=== PATIENT | female | born 1965 | race African-American/Black ===

== ENCOUNTER 2016-06-01 09:52 | Inpatient (IN) | payer OTHER ==
[2016-06-01 11:08] VITALS: BMI 27.6
--- NOTE | 2016-06-01 12:09 | HP ---
CIWA Score - CIWA Score Nausea/Vomitin Muscle Tremors: 3 Anxiety: 3 Agitation: 3 Paroxysmal Sweats: 2 Orientation: 0-Oriented Tacttile Disturbances: 2-Mild Itch/Numbness/Burn Auditory Disturbances: 2-Mild Harshness/Frighten Visual Disturbances: 2-Mild Sensitivity Headache: 2-Mild CIWA-Ar Total Score: 22 Admission ROS [facility] - HPI Chief Complaint: I NEEED HELP TO STOP DRINKING ALCOHOL AND USING COCAINE Allergies/Adverse Reactions: Allergies Allergy/AdvReac Type Severity Reaction Status Date / Time No Known Allergies Allergy Verified 06/01/16 11:54 History of Present Illness: THIS 51 YERS OLD FEMALE WITH ALCOHOL AND CCOAINE DEPENDENCE,WITHDRAWAL SYMPTOM, LAST DETOX 12/25/15 TO 12/29/15 [facility] ASTHMA UMBILICAL HERNIA DEPRESSION SYPHILIS TREATED YEAST INFECTION SEVERAL ADMISSIONS IN THE PAST KEEP RELAPSING LONGEST PERIOD OF SOBRIETY 18 MONTHS - Ebola screening Have you traveled outside of the country in the last 21 days: No Have you had contact with anyone from an Ebola affected area: No Have you been sick,other than usual withdrawal symptoms: No Do you have a fever: No - Review of Systems Constitutional: Loss of Appetite, Malaise, Night Sweats, Changes in sleep, Weakness EENT: reports: Nose Congestion Respiratory: reports: No Symptoms reported GI: reports: Diarrhea, Nausea, Vomiting, Abdominal cramping : reports: No Symptoms Reported Musculoskeletal: reports: Back Pain, Joint Pain, Muscle Pain Integumentary: reports: Dryness Neuro: reports: Headache, Tremors Endocrine: reports: No Symptoms Reported Hematology: reports: No Symptoms Reported Psychiatric: reports: Judgement Intact, Mood/Affect Appropiate, Orientated x3, Depressed Patient History - Patient Medical History Hx Anemia: No Hx Asthma: Yes (ON ALBUTEROL INHALER) Hx Chronic Obstructive Pulmonary Disease (COPD): No Hx Cancer: No Hx Cardiac Disorders: No Hx Congestive Heart Failure: No Hx Hypertension: No Hx Hypercholesterolemia: No Hx Pacemaker: No HX Cerebrovascular Accident: No Hx Seizures: No Hx Dementia: No Hx Diabetes: No Hx Gastrointestinal Disorders: No Hx Liver Disease: No Hx Genitourinary Disorders: No Hx Sexually Transmitted Disorders: Yes (syphilis) Hx Renal Disease (ESRD): No Hx Thyroid Disease: No Hx Human Immunodeficiency Virus (HIV): No (NEGATIVE HX,) Hx Hepatitis C: No Hx Depression: Yes Hx Suicide Attempt: Yes (9 YEARS OLD OVERDOSE ASPIRIN) Hx Bipolar Disorder: Yes (seroquel) Hx Schizophrenia: No Other Medical History: NO SUICIDAL,NO HOMICIDAL - Patient Surgical History Past Surgical History: Yes Hx Neurologic Surgery: No Hx Cataract Extraction: No Hx Cardiac Surgery: No Hx Lung Surgery: No Hx Breast Surgery: No Hx Breast Biopsy: No Hx Abdominal Surgery: Yes (UMBILICAL HERNIA REPAIR IN 2009) Hx Appendectomy: No Hx Cholecystectomy: No Hx Genitourinary Surgery: No Hx Section: No Hx Orthopedic Surgery: No Hx Hysterectomy: No Other Surgical History: D&C IN 1979 AND 1983 Anesthesia Reaction: No - PPD History Previous Implant?: Yes Documented Results: Negative w/proof Date: 12/27/15 Results: 0 mm PPD to be Administered?: No - Reproductive History Last Menstrual Period: 11/27/15 Patient : No - Smoking Cessation Smoking history: Current every day smoker Have you smoked in the past 12 months: Yes Aproximately how many cigarettes per day: 5 Cigars Per Day: 0 Hx Chewing Tobacco Use: No Initiated information on smoking cessation: Yes 'Breaking Loose' booklet given: 06/01/16 - Substance & Tx. History Hx Alcohol Use: Yes Hx Substance Use: Yes Substance Use Type: Alcohol, Cocaine Hx Substance Use Treatment: Yes - Substances Abused Alcohol Route: Oral Frequency: Daily Amount used: 3 22 OZ BEERS Age of first use: 8 Date of Last Use: 05/31/16 Crack Route: Smoking Frequency: Daily Amount used: $40-50 Age of first use: 16 Date of Last Use: 05/29/16 Family Disease History - Family Disease History Family Disease History: [place]: Mother (drug use ), Other: Mother Admission Physical Exam [facility] - Vital Signs Vital Signs: Vital Signs - 24 hr 06/01/16 11:02 Temperature 97.1 F L Pulse Rate 76 Respiratory 18 Rate Blood Pressure 151/104 - Physical General Appearance: Yes: Moderate Distress, Tremorous, Irritable, Sweating, Anxious HEENTM: Yes: EOMI, Hearing grossly Normal, Normal ENT Inspection, Pharynx Normal , Nasal Congestion Respiratory: Yes: Lungs Clear, Normal Breath Sounds, No Respiratory Distress Neck: Yes: Within Normal Limits, Supple, Trachea in good position Breast: Yes: Breast Exam Deferred Cardiology: Yes: Within Normal Limits, Regular Rhythm, Regular Rate Abdominal: Yes: Within Normal Limits, Normal Bowel Sounds, Non Tender, Flat, Soft, Surgical Scar Genitourinary: Yes: Yeast Infection Back: Yes: Within Normal Limits, Normal Inspection, Muscle Spasm Musculoskeletal: Yes: Back pain, Joint Stiffness Extremities: Yes: Normal Inspection, Normal Range of Motion, Tremors 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 (4) Nicotine dependence Current Visit: No Status: Chronic Qualifiers: Nicotine product type: cigarettes Substance use status: uncomplicated Qualified Code(s): F17.210 - Nicotine dependence, cigarettes, uncomplicated (5) MDD (major depressive disorder) Current Visit: No Status: Suspected (6) Syncope Current Visit: No Status: Suspected Qualifiers: Syncope type: unspecified Qualified Code(s): R55 - Syncope and collapse (7) Arthritis Current Visit: Yes Status: Acute (8) Cocaine dependence, uncomplicated Current Visit: No Status: Chronic (9) Yeast infection Current Visit: Yes Status: Acute Cleared for Admission S - Detox or Rehab [facility] Level of Care: Medically Managed Detox Regimen/Protocol: Librium S Breath Alcohol Content Breath Alcohol Content: 0 Urine Pregancy Test - Result Urine Test Results: Negative- NO Line Present Urine Drug Screen - Results Drug Screen Negative: No Urine Drug Screen Results: JERRI-Cocaine
[2016-06-01] MEDS ORDERED: hydrOXYzine PAMOATE 25 MG CAPSULE (FP) PO PRN (12:18)
[2016-06-01] MEDS ORDERED: diphenhydrAMINE HCL 50 MG CAPSULE PO PRN (12:18)
[2016-06-01] MEDS ORDERED: MAGNESIUM CITRATE 300 ML BOTTLE PO PRN (12:18)
[2016-06-01] MEDS ORDERED: MAG HYDROX/AL HYDROX/SIMETH 30 ML UNIT-DOSE CUP PO PRN (12:18)
[2016-06-01] MEDS ORDERED: MAGNESIUM HYDROX 2400MG/30ML ORAL SUSPENSION 30 ML CUP PO PRN (12:18)
[2016-06-01] MEDS ORDERED: IBUPROFEN 400 MG TABLET (FP) PO PRN (12:18)
[2016-06-01] MEDS ORDERED: chlordiazePOXIDE HCL 25 MG CAPSULE PO PRN (12:18)
[2016-06-01] MEDS ORDERED: LOPERAMIDE HCL 2 MG CAPSULE PO PRN (12:18)
[2016-06-01] MEDS ORDERED: guaiFENesin/D-METHORPHAN HB 10 ML UNIT-DOSE CUPS PO PRN (12:18)
[2016-06-01] MEDS ORDERED: ACETAMINOPHEN 325 MG TABLET (FP) PO PRN (12:18)
[2016-06-01] MEDS ORDERED: MENTHOL/PHENOL 1 EACH UD MM PRN (12:18)
[2016-06-01] MEDS ORDERED: P-EPHED 60MG/TRIPROLIDI 2.5MG TABLET PO PRN (12:18)
[2016-06-01] MEDS ORDERED: ALBUTEROL SO4 6.7 GM HFA INHALER IH PRN (12:20)
[2016-06-01] MEDS ORDERED: FLUCONAZOLE 50 MG TABLET PO ONE (12:56)
[2016-06-01] MEDS ORDERED: chlordiazePOXIDE HCL 25 MG CAPSULE PO ONE (12:56)
[2016-06-01] MEDS: chlordiazePOXIDE HCL 25 MG CAPSULE PO SCH ×2 (17:32→22:26)
[2016-06-01 17:35] LABS: URINE APPEARANCE SLCLOUDY; URINE BILIRUBIN NEGATIVE (NEGATIVE); URINE BLOOD NEGATIVE (NEGATIVE); URINE COLOR YELLOW; URINE GLUCOSE (UA) NEGATIVE (NEGATIVE); URINE KETONE NEGATIVE (NEGATIVE); URINE LEUK ESTERASE NEGATIVE (NEGATIVE); URINE NITRITE NEGATIVE (NEGATIVE); URINE PROTEIN NEGATIVE (NEGATIVE); URINE UROBILINOGEN NEGATIVE E.U./dl (0.2-1.0)
[2016-06-01] MEDS: NAPROXEN 500 MG TABLET (FP) PO SCH (22:26)
[2016-06-01] MEDS: THIAMINE HCL 100 MG TABLET (FP) PO SCH (22:26)
[2016-06-02] MEDS: chlordiazePOXIDE HCL 25 MG CAPSULE PO SCH ×4 (08:00→22:33)
--- NOTE | 2016-06-02 08:25 | CONSULT ---
[facility] Psychiatric Consult - Data Date of interview: 06/02/16 Admission source: [facility] Identifying data: This is 51 years old fema;e with history of Bipolar disorder intoxicated with: Alcohol, Cannabis, PCP, Methamphetamins, Nicotin Substance Abuse History: Smoking history: Current every day smoker. Have you smoked in the past 12 months: Yes. Aproximately how many cigarettes per day: 5. Cigars Per Day: 0. Hx Chewing Tobacco Use: No. Initiated information on smoking cessation: Yes. 'Breaking Loose' booklet given: 06/01/16. - Substance & Tx. History. Hx Alcohol Use: Yes. Hx Substance Use: Yes. Substance Use Type : Alcohol, Cocaine. Hx Substance Use Treatment: Yes. - Substances Abused. Alcohol. Route: Oral. Frequency: Daily. Amount used: 3 22 OZ BEERS. Age of first use: 8. Date of Last Use: 05/31/16. Crack. Route: Smoking. Frequency: Daily. Amount used: $40-50. Age of first use: 16. Date of Last Use : 05/29/16 Medical History: Arthritis history, Hyp[okalenmia history, Asthma, Syncope history Psychiatric History: Patient repoprts history of Bipolar disorder with most recent psychiatric admission on more then 5 years ago, reports currently stable on Seroquel 300mg po bid Physical/Sexual Abuse/Trauma History: Denies Additional Comment: Seroquel 300mg po bid Mental Status Exam - Mental Status Exam Alert and Oriented to: Person Cognitive Function: Fair Patient Appearance: Unkempt Mood: Sad Affect: Mood Congruent Patient Behavior: Cooperative Speech Pattern: Appropriate Voice Loudness: Mildly Soft/Quiet Thought Process: Goal Oriented Thought Disorder: Being Controlled Suicidal Ideation: Denies Homicidal Ideation: Denies Insight/Judgement: Fair Sleep: Difficulty falling asleep Appetite: Weight gain Muscle strength/Tone: Mild Hypotonicity Gait/Station: Shuffling Additional Comments: Seroquel 300mg po bid Psychiatric Findings - Problem List ([place] 1, 2,3) (1) Substance induced mood disorder Current Visit: No Status: Acute (2) Alcohol dependence with uncomplicated withdrawal Current Visit: No Status: Chronic (3) Bipolar II disorder Current Visit: No Status: Chronic Comment: Historical diagnosis. (4) Cannabis dependence Current Visit: No Status: Chronic (5) Cocaine dependence, uncomplicated Current Visit: No Status: Chronic (6) Major depressive disorder, recurrent episode, severe, with psychotic behavior Current Visit: No Status: Chronic (7) Methamphetamine addiction Current Visit: No Status: Chronic (8) Nicotine dependence Current Visit: No Status: Chronic Qualifiers: Nicotine product type: cigarettes Substance use status: uncomplicated Qualified Code(s): F17.210 - Nicotine dependence, cigarettes, uncomplicated (9) PCP (phencyclidine) abuse Current Visit: No Status: Chronic (10) Bipolar depression Current Visit: Yes Status: Suspected - Initial Treatment Plan Initial Treatment Plan: Seroquel 300mg po bid
[2016-06-02 10:05] LABS: MCH 29.3 pg (25.7-33.7); MCHC 32.2 g/dl (32.0-36.0); MEAN CELL VOLUME 91.1 fl (80-96); MEAN PLT VOLUME 8.3 fl (7.5-11.1); PLATELET COUNT 312 K/MM3 (134-434); RDW 14.8 % (11.6-15.6); WHITE BLOOD COUNT 5.4 K/mm3 (4.0-10.0)
[2016-06-02 10:36] LABS: ALBUMIN 3.3 g/dl (3.4-5.0); ALK PHOS 74 U/L (45-117); ANION GAP 11 (8-16); BILIRUBIN,TOTAL 0.2 mg/dL (0.2-1.0); CALCIUM 8.3 mg/dL (8.5-10.1); CO2 23 mmol/L (21-32); COCKROFT - GAULT 85.9265; CREATININE 0.9 mg/dL (0.55-1.02); GLUCOSE,RANDOM 100 mg/dL (74-106); SGOT/AST 15 U/L (15-37); SGPT/ALT 18 U/L (12-78); TOT PROT 7.5 g/dl (6.4-8.2)
[2016-06-02] MEDS: NAPROXEN 500 MG TABLET (FP) PO SCH ×2 (10:57→22:33)
[2016-06-02] MEDS: PRENATAL VITAMINS W/ FOLIC ACID TABLET (FP) PO SCH (10:57)
[2016-06-02] MEDS: QUEtiapine FUMARATE 300 MG TABLET PO SCH ×2 (10:59→22:33)
--- NOTE | 2016-06-02 12:35 | EKG ---
Test Reason : Blood Pressure : / mmHG Vent. Rate : 079 BPM Atrial Rate : 079 BPM P-R Int : 150 ms QRS Dur : 138 ms QT Int : 426 ms P-R-T Axes : 075 065 053 degrees QTc Int : 488 ms NORMAL SINUS RHYTHM RIGHT BUNDLE BRANCH BLOCK ABNORMAL ECG NO PREVIOUS ECGS AVAILABLE Confirmed by MARIE NICOLE MD ([id number]) on 06/02/2016 12:35:08 PM Referred By: Confirmed By:MARIE NICOLE MD
--- NOTE | 2016-06-02 13:57 | PN ---
S CIWA - CIWA Score Nausea/Vomitin Muscle Tremors: 3 Anxiety: 3 Agitation: 2 Paroxysmal Sweats: 3 Orientation: 0-Oriented Tacttile Disturbances: 2-Mild Itch/Numbness/Burn Auditory Disturbances: 0-None Visual Disturbances: 0-None Headache: 0-None Present CIWA-Ar Total Score: 16 BHS Progress Note (SOAP) Subjective: interrupted sleep, sweats, lbp Objective: 06/02/16 13:55 Vital Signs Temperature 96.0 F L 06/02/16 11:04 Pulse Rate 80 06/02/16 11:04 Respiratory Rate 18 06/02/16 11:04 Blood Pressure 139/96 06/02/16 11:04 O2 Sat by Pulse Oximetry (%) Laboratory Tests 06/01/16 06/02/16 06/02/16 13:00 06:20 06:20 WBC 5.4 RBC 3.91 Hgb 11.5 Hct 35.6 MCV 91.1 MCHC 32.2 RDW 14.8 Plt Count 312 MPV 8.3 Sodium 144 Potassium 3.7 Chloride 110 H Carbon Dioxide 23 D Anion Gap 11 BUN 24 H Creatinine 0.9 Creat Clearance w eGFR > 60 Random Glucose 100 Calcium 8.3 L Total Bilirubin 0.2 AST 15 ALT 18 Alkaline Phosphatase 74 Total Protein 7.5 Albumin 3.3 L Urine Color Yellow Urine Appearance Slcloudy Urine pH 5.0 Ur Specific [place] 1.026 Urine Protein Negative Urine Glucose (UA) Negative Urine Ketones Negative Urine Blood Negative Urine Nitrite Negative Urine Bilirubin Negative Urine Urobilinogen Negative Ur Leukocyte Esterase Negative pt aox3 in nad sitting up in bed Assessment: 06/02/16 13:56 withdrawal sx's Plan: cont. detox increase fluids nsaids
[2016-06-02 15:51] LABS: HIV 1 AGp24 NEGATIVE
[2016-06-02 15:52] LABS: HIV 1 & 2 AB PRELIMINARY POSITIVE
[2016-06-02] MEDS: THIAMINE HCL 100 MG TABLET (FP) PO SCH (22:32)
[2016-06-03] MEDS: chlordiazePOXIDE HCL 25 MG CAPSULE PO SCH ×2 (06:43→13:38)
--- NOTE | 2016-06-03 10:43 | PN ---
Psychiatric Progress Note Vital Signs: Vital Signs Period Temp Pulse Resp BP Sys/Blake Pulse Ox Last 24 Hr 96.0 F-98.4 F 73-101 18-18 117-154/81-101 Date of Session: 06/03/16 Chief Complaint:: Ovesedation HPI: As per nursing stuff patient is sedated after taking cyuuent Seroquel doase , pastien reported taking this dosage prior to admission and insited on continuation. Seroquel 300mg po bid Current Medications: Active Medications Generic Name Dose Route Start Last Admin Trade Name Freq PRN Reason Stop Dose Admin Acetaminophen 650 mg 06/01/16 12:18 Tylenol - PO Q4H PRN FEVER OR PAIN Al Hydroxide/Mg Hydroxide 30 ml 06/01/16 12:18 Mylanta Oral Suspension - PO Q6H PRN DYSPEPSIA Albuterol Sulfate 2 puff 06/01/16 12:20 Ventolin Hfa Inhaler - IH Q4H PRN ASTHMA Chlordiazepoxide HCl 10 mg 06/04/16 17:00 Librium - PO 06/05/16 11:01 [id number] CATIE Chlordiazepoxide HCl 25 mg 06/01/16 12:18 Librium - PO 06/04/16 12:17 Q4H PRN WITHDRAWAL(CONT SUBST) Chlordiazepoxide HCl 25 mg 06/02/16 17:00 06/03/16 06:43 Librium - PO 06/03/16 11:01 Not Given [id number] CATIE Chlordiazepoxide HCl 15 mg 06/03/16 17:00 Librium - PO 06/04/16 11:01 [id number] CATIE Diphenhydramine HCl 50 mg 06/01/16 12:18 Benadryl - PO HSMR1 PRN INSOMNIA Eucalyptus/Menthol/Phenol/Sorbitol 1 each 06/01/16 12:18 Cepastat Lozenge - MM Q4H PRN SORE THROAT Guaifenesin 10 ml 06/01/16 12:18 Robitussin Dm - PO Q6H PRN COUGH Hydroxyzine Pamoate 25 mg 06/01/16 12:18 Vistaril - PO Q4H PRN AGITATION Loperamide HCl 4 mg 06/01/16 12:18 Imodium - PO Q6H PRN DIARRHEA Magnesium Citrate 300 ml 06/01/16 12:18 Citroma - PO Q48H PRN CONSTIPATION Magnesium Hydroxide 30 ml 06/01/16 12:18 Milk Of Magnesia - PO DAILY PRN CONSTIPATION Naproxen 500 mg 06/01/16 22:00 06/02/16 22:33 Naprosyn - PO 500 mg BID CATIE Administration Multivit/Folic Acid/Iron 1 tab 06/02/16 10:00 06/02/16 10:57 Vitamins (Sjr) - PO 1 tab DAILY CATIE Administration Pseudoephedrine/Triprolidine 1 combo 06/01/16 12:18 Actifed - PO TID PRN NASAL CONGESTION Quetiapine Fumarate 100 mg 06/03/16 10:00 Seroquel - PO BID CATIE Thiamine HCl 100 mg 06/01/16 22:00 06/02/16 22:32 Vitamin B1 - PO 100 mg HS CATIE Administration Medication(s) Change(s): Seroquel 100mg po bid Mental Status Exam - Mental Status Exam Alert and Oriented to: Person Cognitive Function: Fair Patient Appearance: Unkempt Mood: Sad Affect: Flat Patient Behavior: Sedated Speech Pattern: Delayed Voice Loudness: Mildly Soft/Quiet, Moderately Soft/Quiet Thought Process: Circumstantial Thought Disorder: Present Hallucinations: Denies Suicidal Ideation: Denies Homicidal Ideation: Denies Insight/Judgement: Poor Sleep: Difficulty falling asleep Appetite: Weight gain Muscle strength/Tone: Mild Hypotonicity Gait/Station: Shuffling Additional Comments: Seroquel 100mg po bid Psychiatric Treatment Plan - Problem List (1) Substance induced mood disorder Current Visit: No (2) Alcohol dependence with uncomplicated withdrawal Current Visit: No (3) Bipolar II disorder Current Visit: No Comment: Historical diagnosis. (4) Cannabis dependence Current Visit: No (5) Cocaine dependence, uncomplicated Current Visit: No (6) Major depressive disorder, recurrent episode, severe, with psychotic behavior Current Visit: No (7) Methamphetamine addiction Current Visit: No (8) Nicotine dependence Current Visit: No Qualifiers: Nicotine product type: cigarettes Substance use status: uncomplicated Qualified Code(s): F17.210 - Nicotine dependence, cigarettes, uncomplicated (9) PCP (phencyclidine) abuse Current Visit: No (10) Bipolar depression Current Visit: Yes Initial treatment plan: Seroquel 100mg po bid
--- NOTE | 2016-06-03 11:31 | PN ---
BHS Progress Note (SOAP) Subjective: meds are too sedating Objective: 06/03/16 11:30 Vital Signs Temperature 96.8 F L 06/03/16 10:22 Pulse Rate 101 H 06/03/16 10:22 Respiratory Rate 18 06/03/16 10:22 Blood Pressure 117/81 06/03/16 10:22 O2 Sat by Pulse Oximetry (%) Laboratory Tests 06/01/16 06/02/16 06/02/16 13:00 06:20 06:20 WBC 5.4 RBC 3.91 Hgb 11.5 Hct 35.6 MCV 91.1 MCHC 32.2 RDW 14.8 Plt Count 312 MPV 8.3 Sodium 144 Potassium 3.7 Chloride 110 H Carbon Dioxide 23 D Anion Gap 11 BUN 24 H Creatinine 0.9 Creat Clearance w eGFR > 60 Random Glucose 100 Calcium 8.3 L Total Bilirubin 0.2 AST 15 ALT 18 Alkaline Phosphatase 74 Total Protein 7.5 Albumin 3.3 L Urine Color Yellow Urine Appearance Slcloudy Urine pH 5.0 Ur Specific [place] 1.026 Urine Protein Negative Urine Glucose (UA) Negative Urine Ketones Negative Urine Blood Negative Urine Nitrite Negative Urine Bilirubin Negative Urine Urobilinogen Negative Ur Leukocyte Esterase Negative RPR Titer HIV 1&2 Antibody Screen HIV P24 Antigen 06/02/16 06/02/16 06:20 07:50 WBC RBC Hgb Hct MCV MCHC RDW Plt Count MPV Sodium Potassium Chloride Carbon Dioxide Anion Gap BUN Creatinine Creat Clearance w eGFR Random Glucose Calcium Total Bilirubin AST ALT Alkaline Phosphatase Total Protein Albumin Urine Color Urine Appearance Urine pH Ur Specific [place] Urine Protein Urine Glucose (UA) Urine Ketones Urine Blood Urine Nitrite Urine Bilirubin Urine Urobilinogen Ur Leukocyte Esterase RPR Titer Nonreactive HIV 1&2 Antibody Screen Preliminary positive HIV P24 Antigen Negative 06/03/16 14:20 pt alert ox3 lying in bed in nad Assessment: 06/03/16 14:18 withdrawal sx's preliminary hiv + pending confirmatory scheduled for tomorrow afternoon by lab andrey pt states last hiv testing 4 m ago was negative 06/03/16 14:21 Plan: cont. detox increase fluids f/up hiv confirmatory results d/c tomorrow after results given
[2016-06-03] MEDS: QUEtiapine FUMARATE 100 MG TABLET (FP) PO SCH ×2 (13:36→22:54)
[2016-06-03] MEDS: PRENATAL VITAMINS W/ FOLIC ACID TABLET (FP) PO SCH (13:36)
[2016-06-03] MEDS: NAPROXEN 500 MG TABLET (FP) PO SCH ×2 (13:36→22:54)
[2016-06-03] MEDS: chlordiazePOXIDE 5 MG CAPSULE PO SCH ×2 (18:52→22:36)
[2016-06-03] MEDS: THIAMINE HCL 100 MG TABLET (FP) PO SCH (22:37)
[2016-06-04] MEDS: chlordiazePOXIDE 5 MG CAPSULE PO SCH ×2 (07:23→10:58)
[2016-06-04] MEDS: QUEtiapine FUMARATE 100 MG TABLET (FP) PO SCH (10:58)
[2016-06-04] MEDS: PRENATAL VITAMINS W/ FOLIC ACID TABLET (FP) PO SCH (10:58)
[2016-06-04] MEDS: NAPROXEN 500 MG TABLET (FP) PO SCH ×2 (10:59→22:59)
--- NOTE | 2016-06-04 11:04 | PN ---
Psychiatric Progress Note Vital Signs: Vital Signs Period Temp Pulse Resp BP Sys/Blake Pulse Ox Last 24 Hr 96.6 F-97.9 F 77-97 18-20 117-145/82-85 Date of Session: 06/04/16 Chief Complaint:: " I am fine." HPI: Day 5 of detox treatment.Patient is addressing issues of dependence ( alcohol,amphetamine,cocaine,cannabis,phencyclidine) co-morbid with Bipolar-II Disorder.Doing fine.Nearing completion of detox protocol.Psychiatric re-consult is sought as a supportive intervention to assist this patient who got informed of being seropositive for HIV virus. ROS: Unremarkable.Patient is visible,active,sociable and ambulatory.Cognition remains intact.No evidence of acute distress. Current Medications: Active Medications Generic Name Dose Route Start Last Admin Trade Name Freq PRN Reason Stop Dose Admin Acetaminophen 650 mg 06/01/16 12:18 Tylenol - PO Q4H PRN FEVER OR PAIN Al Hydroxide/Mg Hydroxide 30 ml 06/01/16 12:18 Mylanta Oral Suspension - PO Q6H PRN DYSPEPSIA Albuterol Sulfate 2 puff 06/01/16 12:20 Ventolin Hfa Inhaler - IH Q4H PRN ASTHMA Chlordiazepoxide HCl 10 mg 06/04/16 17:00 Librium - PO 06/05/16 11:01 [id number] CATIE Chlordiazepoxide HCl 25 mg 06/01/16 12:18 Librium - PO 06/04/16 12:17 Q4H PRN WITHDRAWAL(CONT SUBST) Diphenhydramine HCl 50 mg 06/01/16 12:18 Benadryl - PO HSMR1 PRN INSOMNIA Eucalyptus/Menthol/Phenol/Sorbitol 1 each 06/01/16 12:18 Cepastat Lozenge - MM Q4H PRN SORE THROAT Guaifenesin 10 ml 06/01/16 12:18 Robitussin Dm - PO Q6H PRN COUGH Hydroxyzine Pamoate 25 mg 06/01/16 12:18 Vistaril - PO Q4H PRN AGITATION Loperamide HCl 4 mg 06/01/16 12:18 Imodium - PO Q6H PRN DIARRHEA Magnesium Citrate 300 ml 06/01/16 12:18 Citroma - PO Q48H PRN CONSTIPATION Magnesium Hydroxide 30 ml 06/01/16 12:18 Milk Of Magnesia - PO DAILY PRN CONSTIPATION Naproxen 500 mg 06/01/16 22:00 06/04/16 10:59 Naprosyn - PO Not Given BID CATIE Multivit/Folic Acid/Iron 1 tab 06/02/16 10:00 06/04/16 10:58 Vitamins (Sjr) - PO 1 tab DAILY CATIE Administration Pseudoephedrine/Triprolidine 1 combo 06/01/16 12:18 Actifed - PO TID PRN NASAL CONGESTION Quetiapine Fumarate 100 mg 06/03/16 10:00 06/04/16 10:58 Seroquel - PO Not Given BID CATIE Thiamine HCl 100 mg 06/01/16 22:00 06/03/16 22:37 Vitamin B1 - PO 100 mg HS CATIE Administration Medication(s) Change(s): No indication for medications changes. Current Side Effect: No Lab tests ordered: No Lab tests reviewed: Yes (Noted preliminary result : HIV + ) Provider note:: Previous progress notes are reviewed.Dr Zuñiga's consult note is appreciated.Case is presented by RN and patient's counselor.Met with the patient.Ms Valadez indicates that she is " not surprised " by this result.She also comments that this is " not the first time " the situation has occurred.Patient remains skeptical of the result and she intends to contact her primary care physician for re-testing." I have been involved in risky behaviors, wrong people.I knew that I could get in trouble.However,even if the new test is positive,I will stay in touch with doctors.Nowadays,people with the virus live for a long time." Ms Valadez is well controlled,calm,hopeful and future- oriented.She shows acceptance of this new challenge and a clear determination to manage the situation.Mental status is stable.See report.Patient responds favorably to staff's empathy/support.Hospital course remains uneventful.Patient is at her baseline.Discussed with the Multidisciplinary treatment team. Total face to face time:: 35 Mental Status Exam - Mental Status Exam Alert and Oriented to: Time, Place, Person Cognitive Function: Good Patient Appearance: Well Groomed Mood: Hopeful, Euthymic Affect: Appropriate, Normal Range Patient Behavior: Appropriate, Cooperative Speech Pattern: Clear, Appropriate Voice Loudness: Normal Thought Process: Goal Oriented Thought Disorder: Not Present Hallucinations: Denies Suicidal Ideation: Denies Homicidal Ideation: Denies Insight/Judgement: Fair Sleep: Well Appetite: Good Muscle strength/Tone: Normal Psychiatric Treatment Plan - Problem List (1) Alcohol dependence with uncomplicated withdrawal Current Visit: Yes (2) Cannabis dependence Current Visit: Yes (3) Cocaine dependence, uncomplicated Current Visit: Yes (4) Nicotine dependence Current Visit: Yes Qualifiers: Nicotine product type: cigarettes Substance use status: uncomplicated Qualified Code(s): F17.210 - Nicotine dependence, cigarettes, uncomplicated (5) PCP (phencyclidine) abuse Current Visit: Yes (6) Methamphetamine addiction Current Visit: Yes (7) Substance induced mood disorder Current Visit: Yes (8) Bipolar II disorder Current Visit: Yes Comment: Historical diagnosis. (9) Arthritis Current Visit: Yes (10) Asthma Current Visit: Yes
--- NOTE | 2016-06-04 12:16 | PN ---
[facility] Progress Note (SOAP) Subjective: Sweating, Hot Sensations, Body Aches. Objective: PT. A & O X 2 (DISORIENTED ABOUT DAY /DATE). PT. OBSERVED AMBULATING ON UNIT. 06/04/16 12:07 Vital Signs Temperature 97.9 F 06/04/16 11:31 Pulse Rate 93 H 06/04/16 11:31 Respiratory Rate 18 06/04/16 11:31 Blood Pressure 139/96 06/04/16 11:31 O2 Sat by Pulse Oximetry (%) Laboratory Last Values WBC 5.4 K/mm3 (4.0-10.0) 06/02/16 06:20 RBC 3.91 M/mm3 (3.60-5.2) 06/02/16 06:20 Hgb 11.5 GM/dL (10.7-15.3) 06/02/16 06:20 Hct 35.6 % (32.4-45.2) 06/02/16 06:20 MCV 91.1 fl (80-96) 06/02/16 06:20 MCHC 32.2 g/dl (32.0-36.0) 06/02/16 06:20 RDW 14.8 % (11.6-15.6) 06/02/16 06:20 Plt Count 312 K/MM3 (134-434) 06/02/16 06:20 MPV 8.3 fl (7.5-11.1) 06/02/16 06:20 Sodium 144 mmol/L (136-145) 06/02/16 06:20 Potassium 3.7 mmol/L (3.5-5.1) 06/02/16 06:20 Chloride 110 mmol/L (98-107) H 06/02/16 06:20 Carbon Dioxide 23 mmol/L (21-32) D 06/02/16 06:20 Anion Gap 11 (8-16) 06/02/16 06:20 BUN 24 mg/dL (7-18) H 06/02/16 06:20 Creatinine 0.9 mg/dL (0.55-1.02) 06/02/16 06:20 Creat Clearance w eGFR > 60 (>60) 06/02/16 06:20 Random Glucose 100 mg/dL (74-106) 06/02/16 06:20 Calcium 8.3 mg/dL (8.5-10.1) L 06/02/16 06:20 Total Bilirubin 0.2 mg/dL (0.2-1.0) 06/02/16 06:20 AST 15 U/L (15-37) 06/02/16 06:20 ALT 18 U/L (12-78) 06/02/16 06:20 Alkaline Phosphatase 74 U/L (45-117) 06/02/16 06:20 Total Protein 7.5 g/dl (6.4-8.2) 06/02/16 06:20 Albumin 3.3 g/dl (3.4-5.0) L 06/02/16 06:20 Urine Color Yellow 06/01/16 13:00 Urine Appearance Slcloudy 06/01/16 13:00 Urine pH 5.0 (5.0-8.0) 06/01/16 13:00 Ur Specific [place] 1.026 (1.001-1.035) 06/01/16 13:00 Urine Protein Negative (NEGATIVE) 06/01/16 13:00 Urine Glucose (UA) Negative (NEGATIVE) 06/01/16 13:00 Urine Ketones Negative (NEGATIVE) 06/01/16 13:00 Urine Blood Negative (NEGATIVE) 06/01/16 13:00 Urine Nitrite Negative (NEGATIVE) 06/01/16 13:00 Urine Bilirubin Negative (NEGATIVE) 06/01/16 13:00 Urine Urobilinogen Negative E.U./dl (0.2-1.0) 06/01/16 13:00 Ur Leukocyte Esterase Negative (NEGATIVE) 06/01/16 13:00 RPR Titer Nonreactive (NONREACTIVE) 06/02/16 06:20 HIV-1 Antibody Positive (Negative) H 06/02/16 07:50 HIV-2 Antibody Negative (Negative) 06/02/16 07:50 HIV 1&2 Ag/Ab, 4th Gen (Non Reactive) 06/02/16 07:50 HIV Note (.) 06/02/16 07:50 HIV 1&2 Antibody Screen Preliminary positive 06/02/16 07:50 HIV P24 Antigen Negative 06/02/16 07:50 LABS NOTED. PRELIMINARY POSITIVE HIV RESULT NOTED. CONFIRMATORY RESULT PENDING. Assessment: 06/04/16 12:09 WITHDRAWAL SYMPTOMS. Plan: CONTINUE DETOX. ADVISED PATIENT TO FOLLOW-UP WITH OUTDOOR PURSUITS INSTRUCTOR / REHAB MEDICAL PROVIDER AFTER DISCHARGE FROM DETOX FOR ABNORMAL LAB VALUES. PATIENT MADE AWARE OF PRELIMINARY POSITIVE HIV ANTIBODY RESULT. PATIENT NOTES POSITIVE HIV RESULT IN PAST. MENTAL HEALTH CASE MANAGER ALONG WITH SUBSTANCE ABUSE PREVENTION COORDINATOR Prieto WRIGHT AND Saira BRIAN RN DISCUSSED RESULT WITH PATIENT. PATIENT CALM AND RECEPTIVE UPON HEARING ABOUT RESULT. PATIENT REFERRED FOR FURTHER EVALUATION / TREATMENT AT [facility] (Hannah CARRERA, SHEET METAL HELPER: YOUNG). APPOINTMENT SCHEDULED FOR Tuesday06/08/16 AT 10:30 AM. PATIENT OFFERED OPPORTUNITY TO ASK QUESTIONS. PATIENT REFERRED TO UNIT PSYCHIATRIST DR. GINNA MD FOR FURTHER EVALUATION AND COUNSELING.
--- NOTE | 2016-06-04 17:10 | PN ---
[facility] Progress Note Note: CONFIRMATORY HIV RESULT STILL PENDING WHEN CHECKED LATER ON IN SHIFT. PATIENT'S CORRECT TELEPHONE NUMBER AND MAILING ADDRESS ON FILE AND CONFIRMED BY PATIENT HERSELF SO THAT CONFIRMATORY RESULT, IF NOT AVAILABLE PRIOR TO HER DISCHARGE FROM DETOX, CAN BE SENT TO HER ONCE IT IS AVAILABLE. Prieto LÓPEZ NP
[2016-06-04] MEDS: chlordiazePOXIDE HCL 10 MG CAPSULE PO SCH ×2 (17:48→22:59)
[2016-06-04] MEDS: THIAMINE HCL 100 MG TABLET (FP) PO SCH (22:59)
[2016-06-05] MEDS: QUEtiapine FUMARATE 100 MG TABLET (FP) PO SCH ×2 (00:21→11:22)
[2016-06-05] MEDS: chlordiazePOXIDE HCL 10 MG CAPSULE PO SCH ×2 (06:39→11:22)
[2016-06-05 10:34] VITALS: BP 145/94; PULSE 87; TEMP 98.1
--- NOTE | 2016-06-05 10:34 | PN ---
S Progress Note (SOAP) Subjective: ALERT,NO COMPLAINT Objective: 06/05/16 10:30 Vital Signs Temperature 98 F 06/05/16 06:58 Pulse Rate 75 06/05/16 06:58 Respiratory Rate 18 06/05/16 06:58 Blood Pressure 145/92 06/05/16 06:58 O2 Sat by Pulse Oximetry (%) Assessment: 06/05/16 10:31 DETOX COMPLETED,NO WITHDRAWAL SYMPTOM Plan: DISCHARGE TODAY,FOLLOW UP WITH AFTER CARE PROGRAM ARRANGEMENT AND [facility] ARRANGEMENT BY VINCENT LÓPEZ NP,UNDERSTAND THAT THE CONFIRMATION REPORT IS PENDING FOR HIV
--- NOTE | 2016-06-05 10:36 | DS ---
[facility] Detox Discharge Summary Admission Date: 06/01/16 Discharge Date: 06/05/16 - History Present History: Alcohol Dependence, Cocaine Dependence Additional Comments: PATIENT AWARED PRELIMINARY REPORT HIV IS POSITIVE,PENDING ON CONFIRMATION REPORT , SHE WILL GO TO [facility] ON 06/08/16 ARRANGEMENT PER VINCENT LÓPEZ HELP DESK OPERATOR NOTE PATIENT WILL BE NOTIFIED AFTER CONFIRMATION REPORT RESULT SHE STATED SHE WILL TRY TO CALL DR MCNALLY TIS COMING WEEK Pertinent Past History: ARTHRITIS DEPRESSION - Physical Exam Results Vital Signs: Vital Signs Temperature 98.1 F 06/05/16 10:34 Pulse Rate 87 06/05/16 10:34 Respiratory Rate 16 06/05/16 10:34 Blood Pressure 145/94 06/05/16 10:34 O2 Sat by Pulse Oximetry (%) Pertinent Admission Physical Exam Findings: WITHDRAWAL SYMPTOM - Treatment Hospital Course: Detox Protocol Followed, Detoxed Safely, Responded well, Discharged Condition Good Patient has Accepted a Rehab Referral to: DECLINED - Medication Discharge Medications: Ambulatory Orders Quetiapine Fumarate [Seroquel] 300 mg PO BID 12/25/15 Albuterol Sulfate Inhaler - [Ventolin HFA Inhaler -] 2 inh PO Q4H PRN #1 inhaler 12/29/15 Naproxen [Naprosyn -] 500 mg PO BID #30 tablet 12/29/15 Quetiapine Fumarate [Seroquel -] 300 mg PO BID #60 tab 06/02/16 Albuterol Sulfate Inhaler - [Ventolin HFA Inhaler -] 2 puff IH Q4H PRN #1 inhaler 06/05/16 - Diagnosis (1) Alcohol dependence with uncomplicated withdrawal Status: Chronic (2) Asthma Status: Chronic (3) Bipolar II disorder Status: Chronic (4) Nicotine dependence Status: Chronic Qualifiers: Nicotine product type: cigarettes Substance use status: uncomplicated Qualified Code(s): F17.210 - Nicotine dependence, cigarettes, uncomplicated (5) MDD (major depressive disorder) Status: Suspected (6) Syncope Status: Suspected Qualifiers: Syncope type: unspecified Qualified Code(s): R55 - Syncope and collapse (7) Arthritis Status: Acute (8) Cocaine dependence, uncomplicated Status: Chronic (9) Yeast infection Status: Acute - AMA Did Patient Leave Against Medical Advice: No
[2016-06-05] MEDS: NAPROXEN 500 MG TABLET (FP) PO SCH (11:22)
[2016-06-05] MEDS: PRENATAL VITAMINS W/ FOLIC ACID TABLET (FP) PO SCH (11:22)
--- NOTE | 2016-06-11 18:31 | PN ---
[facility] Progress Note Note: Patient called on telephone and informed about Confirmatory Lab Test Result for HIV Antibody Test drawn on 06/02/2016 (Positive for HIV 1 Ab) while admitted at [facility] for Detox. Patient asked if she needed referral for follow-up care and she noted that she will follow-up for medical care and for further evaluation at [facility] in [place], [place]. Patient offered opportunity to ask questions. When asked if she would like a copy of result mailed to her, patient declined. Patient denies current Suicidal ideation and she denies that she has any intention of harming herself or anyone else. Prieto Sawyer NP
== END 2016-06-05 10:51 | disposition home or self-care (01) | DRG 774 ==
LOC: YASAS 09:52 → Y6N 12:37
PROVIDERS: ADMIT Internal Medicine Addiction Medicine; ATTEND Internal Medicine Addiction Medicine
PROC: HZ2ZZZZ Detoxification Services for Substance Abuse Treatment (ICD-10-PCS; principal; 2016-06-05)
DX: F10.230 Alcohol dependence with withdrawal, uncomplicated (principal); F14.20 Cocaine dependence, uncomplicated; F15.20 Other stimulant dependence, uncomplicated; F12.20 Cannabis dependence, uncomplicated; F17.210 Nicotine dependence, cigarettes, uncomplicated; F33.3 Major depressive disorder, recurrent, severe with psychotic symptoms; F31.81 Bipolar II disorder; F19.24 Other psychoactive substance dependence with psychoactive substance-induced mood disorder; J45.909 Unspecified asthma, uncomplicated; M12.9 Arthropathy, unspecified; B37.3 Candidiasis of vulva and vagina
CPT/HCPCS: 36415; 80053; 81003; 85027; 86593; 87389; 93005; 93010

== ENCOUNTER 2016-09-04 10:09 | Inpatient (IN) | payer OTHER ==
[2016-09-04 11:42] VITALS: BMI 27.1
--- NOTE | 2016-09-04 12:01 | HP ---
CIWA Score - CIWA Score Nausea/Vomitin-Mild Nausea/No Vomiting Muscle Tremors: 4-Moderate,w/Arms Extend Anxiety: 4-Mod. Anxious/Guarded Agitation: 1-Slight > Activity Paroxysmal Sweats: No Perspiration Orientation: 0-Oriented Tacttile Disturbances: 0-None Auditory Disturbances: 1-Very Mild Visual Disturbances: 1-Very Mild Sensitivity Headache: 2-Mild CIWA-Ar Total Score: 14 Admission ROS BHS - HPI Chief Complaint: I want to be detoxed - I really want to stop drinking Allergies/Adverse Reactions: Allergies Allergy/AdvReac Type Severity Reaction Status Date / Time No Known Allergies Allergy Verified 09/04/16 12:05 History of Present Illness: 51 yo woman here for detox from alcohol, one of several detox admissions. Recently diagnosed with HIV (may 2016) - went to [facility] and started on meds and has been adherent. No seizures. Urine test weakly positive but patient states always uses condoms and perimenopausal (last period january 2016 ) - will order serum test to verify status. Exam Limitations: Clinical Condition - Ebola screening Have you traveled outside of the country in the last 21 days: No Have you had contact with anyone from an Ebola affected area: No Have you been sick,other than usual withdrawal symptoms: No Do you have a fever: No - Review of Systems Constitutional: Loss of Appetite, Night Sweats, Changes in sleep EENT: reports: Blurred Vision Respiratory: reports: No Symptoms reported Cardiac: reports: No Symptoms Reported GI: reports: Poor Appetite, Indigestion : reports: Frequency Musculoskeletal: reports: No Symptoms Reported Integumentary: reports: Dryness Neuro: reports: Headache Endocrine: reports: No Symptoms Reported Hematology: reports: No Symptoms Reported Psychiatric: reports: Judgement Intact, Mood/Affect Appropiate, Orientated x3, Anxious Other Systems: Reviewed and Negative Patient History - Patient Medical History Hx Anemia: No Hx Asthma: Yes (ON ALBUTEROL INHALER) Hx Chronic Obstructive Pulmonary Disease (COPD): No Hx Cancer: No Hx Cardiac Disorders: No Hx Congestive Heart Failure: No Hx Hypertension: No Hx Hypercholesterolemia: No Hx Pacemaker: No HX Cerebrovascular Accident: No Hx Seizures: No Hx Dementia: No Hx Diabetes: No Hx Gastrointestinal Disorders: No Hx Liver Disease: No Hx Genitourinary Disorders: No Hx Sexually Transmitted Disorders: Yes (syphilis) Hx Renal Disease (ESRD): No Hx Thyroid Disease: No Hx Human Immunodeficiency Virus (HIV): No (NEGATIVE HX,) Hx Hepatitis C: No Hx Depression: Yes (no regular psych) Hx Suicide Attempt: Yes (9 YEARS OLD OVERDOSE ASPIRIN) Hx Bipolar Disorder: Yes (seroquel) Hx Schizophrenia: No - Patient Surgical History Past Surgical History: Yes Hx Neurologic Surgery: No Hx Cataract Extraction: No Hx Cardiac Surgery: No Hx Lung Surgery: No Hx Breast Surgery: No Hx Breast Biopsy: No Hx Abdominal Surgery: Yes (UMBILICAL HERNIA REPAIR IN 2009) Hx Appendectomy: No Hx Cholecystectomy: No Hx Genitourinary Surgery: No Hx Section: No Hx Orthopedic Surgery: No Hx Hysterectomy: No Other Surgical History: D&C IN 1979 AND 1983 Anesthesia Reaction: No - PPD History Previous Implant?: Yes Documented Results: Negative w/proof Date: 12/27/15 Results: 0 mm PPD to be Administered?: No - Reproductive History Patient is a Female of Child Bearing Age (11 -55 yrs old): Yes Last Menstrual Period: 01/22/16 Patient : No - Smoking Cessation Smoking history: Current every day smoker Have you smoked in the past 12 months: Yes Aproximately how many cigarettes per day: 10 Cigars Per Day: 0 Hx Chewing Tobacco Use: No Initiated information on smoking cessation: Yes 'Breaking Loose' booklet given: 09/04/16 (give on floor) - Substance & Tx. History Hx Alcohol Use: Yes Hx Substance Use: Yes Substance Use Type: Alcohol, Cocaine Hx Substance Use Treatment: Yes (detox, rehab) - Substances Abused Alcohol Route: Oral Frequency: 3-6 times per week Amount used: one pint liquor; 3 beers 24oz Age of first use: 10 Date of Last Use: 09/02/16 Cocaine Route: Inhalation Frequency: 3-6 times per week Amount used: $60 Age of first use: 16 Date of Last Use: 09/02/16 Family Disease History - Family Disease History Family Disease History: Heart Disease: Father (, [place]), [place]: Mother ( ), Other: Father, Mother, Brother (no contact), Sister (healthy), Son ( healthy), Daughter (no contact) Admission Physical Exam BHS - Vital Signs Vital Signs: Vital Signs - 24 hr 09/04/16 11:40 Temperature 96.5 F L Pulse Rate 83 Respiratory 20 Rate Blood Pressure 146/98 - Physical General Appearance: Yes: Nourished, Appropriately Dressed, Mild Distress, Tremorous, Anxious HEENTM: Yes: Hearing grossly Normal, Normal ENT Inspection, Normocephalic, Normal Voice Respiratory: Yes: Normal Breath Sounds, No Respiratory Distress Neck: Yes: No masses,lesions,Nodules, Supple Breast: Yes: Breast Exam Deferred Cardiology: Yes: Regular Rhythm, Regular Rate Abdominal: Yes: Soft Genitourinary: Yes: Frequency Back: Yes: Normal Inspection Musculoskeletal: Yes: full range of Motion, Gait Steady Extremities: Yes: Normal Inspection, Normal Range of Motion Neurological: Yes: Fully Oriented, Normal Mood/Affect, Normal Response Integumentary: Yes: Normal Color, Warm Lymphatic: Yes: Within Normal Limits - Diagnostic (1) Alcohol dependence with uncomplicated withdrawal Current Visit: Yes Status: Chronic (2) Cocaine dependence, uncomplicated Current Visit: Yes Status: Chronic (3) HIV (human immunodeficiency virus infection) Current Visit: Yes Status: Chronic (4) Nicotine dependence Current Visit: Yes Status: Chronic Qualifiers: Nicotine product type: cigarettes Substance use status: uncomplicated Qualified Code(s): F17.210 - Nicotine dependence, cigarettes, uncomplicated Cleared for Admission [facility] - Detox or Rehab [facility] Level of Care: Medically Managed Detox Regimen/Protocol: Librium [facility] Breath Alcohol Content Breath Alcohol Content: 0 Urine Pregancy Test - Result Urine Test Results: Negative- NO Line Present Urine Drug Screen - Results Drug Screen Negative: No Urine Drug Screen Results: JERRI-Cocaine
[2016-09-04] MEDS ORDERED: MAGNESIUM CITRATE 300 ML BOTTLE PO PRN (12:11)
[2016-09-04] MEDS ORDERED: guaiFENesin/D-METHORPHAN HB 10 ML UNIT-DOSE CUPS PO PRN (12:11)
[2016-09-04] MEDS ORDERED: MENTHOL/PHENOL 1 EACH UD MM PRN (12:11)
[2016-09-04] MEDS ORDERED: P-EPHED 60MG/TRIPROLIDI 2.5MG TABLET PO PRN (12:11)
[2016-09-04] MEDS ORDERED: MAG HYDROX/AL HYDROX/SIMETH 30 ML UNIT-DOSE CUP PO PRN (12:11)
[2016-09-04] MEDS ORDERED: chlordiazePOXIDE HCL 25 MG CAPSULE PO PRN (12:11)
[2016-09-04] MEDS ORDERED: hydrOXYzine PAMOATE 50 MG CAPSULE (FP) PO PRN (12:11)
[2016-09-04] MEDS ORDERED: LOPERAMIDE HCL 2 MG CAPSULE PO PRN (12:11)
[2016-09-04] MEDS ORDERED: MAGNESIUM HYDROX 2400MG/30ML ORAL SUSPENSION 30 ML CUP PO PRN (12:11)
[2016-09-04] MEDS ORDERED: ACETAMINOPHEN 325 MG TABLET (FP) PO PRN (12:11)
[2016-09-04] MEDS ORDERED: ALBUTEROL SO4 6.7 GM HFA INHALER IH PRN (12:16)
[2016-09-04] MEDS ORDERED: chlordiazePOXIDE HCL 25 MG CAPSULE PO ONE (12:45)
--- NOTE | 2016-09-04 15:13 | CONSULT ---
[facility] Psychiatric Consult - Data Date of interview: 09/04/16 Admission source: [facility] Identifying data: This is one of the multiple admissions to [facility] for this 51 y/o AA female seeking detox treatment on for alcohol and cocaine dependence.Patient is single,a mother of two,domiciled,unemployed and supported on SSI benefits. Substance Abuse History: Patient admits to a long history of alcohol abuse ( onset at age 10).Consumes one pint of vodka/3 beers on a daily basis.Last use was on 09/03/16.Has been abusing cocaine via snorting since age 16 and spends a total of 150 dollars/week as per self-report.Last use was on 09/02/16.Known to [facility] (detox/rehab). Medical History: Significant for bronchial asthma,past treatment for syphilis and umbilical herniorraphy. Psychiatric History: History of an early onset of psychiatric illness (age [age]).Circumstance : suicide attempt via overdose with aspirin that led to psychiatric admission to [facility].Diagnosed with Bipolar Disorder during incarceration at [facility] and treated with seroquel.Still prescribed seroquel at various doses (during detox/rehab stays) but the patient continues to endorse non-adherence to OPD care.Lost to follow up since [facility] [place] (December 2015). Physical/Sexual Abuse/Trauma History: Patient denies. Additional Comment: Urine Drug Screen Results: positive for cocaine. Mental Status Exam - Mental Status Exam Alert and Oriented to: Time, Place, Person Cognitive Function: Good Patient Appearance: Disheveled Mood: Anxious, Apprehensive Affect: Appropriate, Mood Congruent Patient Behavior: Fatigued, Appropriate, Cooperative Speech Pattern: Clear Voice Loudness: Normal Thought Process: Goal Oriented Thought Disorder: Not Present Hallucinations: Denies Suicidal Ideation: Denies Homicidal Ideation: Denies Insight/Judgement: Poor Sleep: Poorly, Difficulty falling asleep Appetite: Good Muscle strength/Tone: Normal Gait/Station: Normal Psychiatric Findings - Problem List ([place] 1, 2,3) (1) Alcohol dependence with uncomplicated withdrawal Current Visit: Yes Status: Acute (2) Cocaine dependence, uncomplicated Current Visit: Yes Status: Acute (3) Nicotine dependence Current Visit: Yes Status: Acute Qualifiers: Nicotine product type: cigarettes Substance use status: uncomplicated Qualified Code(s): F17.210 - Nicotine dependence, cigarettes, uncomplicated (4) Substance induced mood disorder Current Visit: Yes Status: Acute (5) Bipolar II disorder Current Visit: Yes Status: Chronic Comment: Historical diagnosis.Non-adherent to medications.Lost to follow up. (6) HIV (human immunodeficiency virus infection) Current Visit: Yes Status: Chronic (7) Arthritis Current Visit: Yes Status: Acute (8) Asthma Current Visit: Yes Status: Chronic - Initial Treatment Plan Initial Treatment Plan: Previous records are reviewed.Detoxification is under way.Recent pharmacy claims are revisited : no immediate claims for seroquel.[facility] report is read and appreciated.Psychoeducation provided and social issues discussed (patient's request) with counselor on duty.Noted past history of heavy sedation on seroquel (Dr Zuñiga's note of 06/03/2016).Caution to be observed (especially in this context of non-adherence and questionable self- reporting).Will resume seroquel at the dose of 100 mg po hs and titrate as indicated by response and tolerability.Watch for drug-drug interaction with HIV medications (potentiation of sedation).Side effects/benefits of seroquel are discussed with the patient.She agrees with the current careplan.Observation.
[2016-09-04] MEDS: chlordiazePOXIDE HCL 25 MG CAPSULE PO SCH ×2 (17:29→22:20)
[2016-09-04 18:17] LABS: URINE APPEARANCE CLEAR; URINE BILIRUBIN NEGATIVE (NEGATIVE); URINE BLOOD NEGATIVE (NEGATIVE); URINE COLOR YELLOW; URINE GLUCOSE (UA) NEGATIVE (NEGATIVE); URINE KETONE NEGATIVE (NEGATIVE); URINE NITRITE NEGATIVE (NEGATIVE); URINE PROTEIN NEGATIVE (NEGATIVE); URINE UROBILINOGEN NEGATIVE mg/dL (0.2-1.0)
[2016-09-04 18:19] LABS: URINE LEUK ESTERASE 1+ (NEGATIVE)
[2016-09-04 18:21] LABS: URINE MUCUS FEW; URINE RBC 2 /hpf (0-3); URINE WBC 4 /hpf (3-5)
[2016-09-04] MEDS ORDERED: diphenhydrAMINE HCL 50 MG CAPSULE PO PRN (22:00)
[2016-09-04] MEDS ORDERED: NAPROXEN 375 MG TABLET (FP) PO SCH (22:00)
[2016-09-04] MEDS: PATIENT'S OWN MEDICATION (NON-FORMULARY) (Dolutegravir Sodium 0 MG) PO SCH (22:17)
[2016-09-04] MEDS: THIAMINE HCL 100 MG TABLET (FP) PO SCH (22:17)
[2016-09-04] MEDS: EMTRICITABINE 200MG/TENOFOVIR 300MG PO SCH (22:18)
[2016-09-04] MEDS: NAPROXEN 500 MG TABLET (FP) PO PRN (22:18)
[2016-09-04] MEDS: QUEtiapine FUMARATE 100 MG TABLET (FP) PO SCH (22:18)
[2016-09-05] MEDS: chlordiazePOXIDE HCL 25 MG CAPSULE PO SCH ×4 (06:26→22:16)
--- NOTE | 2016-09-05 08:28 | PN ---
S CIWA - CIWA Score Nausea/Vomitin Muscle Tremors: 3 Anxiety: 3 Agitation: 3 Paroxysmal Sweats: 1-Minimal Palms Moist Orientation: 0-Oriented Tacttile Disturbances: 1-Very Mild Itch/Numbness Auditory Disturbances: 1-Very Mild Visual Disturbances: 1-Very Mild Sensitivity Headache: 2-Mild CIWA-Ar Total Score: 18 [facility] Progress Note (SOAP) Subjective: alert,irritable,anxious,interrupted seep,tremor Objective: 09/05/16 08:26 Vital Signs Temperature 97.3 F L 09/05/16 06:00 Pulse Rate 72 09/05/16 06:00 Respiratory Rate 18 09/05/16 06:00 Blood Pressure 129/86 09/05/16 06:00 O2 Sat by Pulse Oximetry (%) ekg nsr,rbbb no chest pain,no sob,no dizziness Laboratory Last Values Urine Color Yellow 09/04/16 15:54 Urine Appearance Clear 09/04/16 15:54 Urine pH 5.0 (5.0-8.0) 09/04/16 15:54 Ur Specific [place] >= 1.030 (1.005-1.025) H 09/04/16 15:54 Urine Protein Negative (NEGATIVE) 09/04/16 15:54 Urine Glucose (UA) Negative (NEGATIVE) 09/04/16 15:54 Urine Ketones Negative (NEGATIVE) 09/04/16 15:54 Urine Blood Negative (NEGATIVE) 09/04/16 15:54 Urine Nitrite Negative (NEGATIVE) 09/04/16 15:54 Urine Bilirubin Negative (NEGATIVE) 09/04/16 15:54 Urine Urobilinogen Negative mg/dL (0.2-1.0) 09/04/16 15:54 Ur Leukocyte Esterase 1+ (NEGATIVE) H 09/04/16 15:54 Urine RBC 2 /hpf (0-3) 09/04/16 15:54 Urine WBC 4 /hpf (3-5) 09/04/16 15:54 Ur Epithelial Cells Few /hpf (FEW) 09/04/16 15:54 Urine Mucus Few 09/04/16 15:54 labs pending Assessment: 09/05/16 08:27 withdrawal symptom Plan: continue detox
[2016-09-05] MEDS ORDERED: ALBUTEROL SO4 6.7 GM HFA INHALER IH PRN (08:29)
[2016-09-05 10:07] LABS: MCH 30.8 pg (25.7-33.7); MCHC 33.1 g/dl (32.0-36.0); MEAN PLT VOLUME 7.9 fl (7.5-11.1); PLATELET COUNT 293 K/MM3 (134-434); RDW 16.2 % (11.6-15.6); WHITE BLOOD COUNT 4.9 K/mm3 (4.0-10.0)
[2016-09-05 10:14] LABS: ANION GAP 6 (8-16); CALCIUM 8.2 mg/dL (8.5-10.1); CO2 29 mmol/L (21-32); GLUCOSE,RANDOM 74 mg/dL (74-106); SGOT/AST 18 U/L (15-37); SGPT/ALT 20 U/L (12-78)
[2016-09-05 10:16] LABS: ALK PHOS 92 U/L (45-117); BILIRUBIN,TOTAL 0.1 mg/dL (0.2-1.0); CREATININE 0.8 mg/dL (0.55-1.02); TOT PROT 6.5 g/dl (6.4-8.2)
[2016-09-05] MEDS: PRENATAL VITAMINS W/ FOLIC ACID TABLET (FP) PO SCH (10:23)
--- NOTE | 2016-09-05 13:29 | EKG ---
Test Reason : Blood Pressure : / mmHG Vent. Rate : 062 BPM Atrial Rate : 062 BPM P-R Int : 158 ms QRS Dur : 144 ms QT Int : 484 ms P-R-T Axes : 071 071 056 degrees QTc Int : 491 ms NORMAL SINUS RHYTHM RIGHT BUNDLE BRANCH BLOCK ABNORMAL ECG WHEN COMPARED WITH ECG OF 01-JUN-2016 12:27, T WAVE INVERSION LESS EVIDENT IN ANTERIOR LEADS Confirmed by COREY GARBER, MARIE ([id number]) on 09/05/2016 1:29:01 PM Referred By: ANNA Confirmed By:MARIE NICOLE MD
[2016-09-05] MEDS ORDERED: POTASSIUM CHLORIDE TABS 20 MEQ TABLET.ER (FP) PO ONE (17:18)
--- NOTE | 2016-09-05 17:20 | PN ---
[facility] Progress Note Note: k is 3.4,k dur 20 meq po now then daily
[2016-09-05] MEDS: QUEtiapine FUMARATE 100 MG TABLET (FP) PO SCH (22:15)
[2016-09-05] MEDS: THIAMINE HCL 100 MG TABLET (FP) PO SCH (22:16)
[2016-09-05] MEDS: PATIENT'S OWN MEDICATION (NON-FORMULARY) (Dolutegravir Sodium 0 MG) PO SCH (22:16)
[2016-09-05] MEDS: EMTRICITABINE 200MG/TENOFOVIR 300MG PO SCH (22:16)
[2016-09-06] MEDS: chlordiazePOXIDE HCL 25 MG CAPSULE PO SCH ×2 (06:42→10:55)
--- NOTE | 2016-09-06 09:18 | PN ---
[facility] CIWA - CIWA Score Nausea/Vomitin-No Nausea/No Vomiting Muscle Tremors: 3 Anxiety: 3 Agitation: 3 Paroxysmal Sweats: 3 Orientation: 0-Oriented Tacttile Disturbances: 0-None Auditory Disturbances: 0-None Visual Disturbances: 0-None Headache: 0-None Present CIWA-Ar Total Score: 12 [facility] Progress Note (SOAP) Subjective: sleepy groggy sweats interrupted sleep agitation Objective: 09/06/16 09:17 Vital Signs Temperature 97.9 F 09/06/16 09:07 Pulse Rate 93 H 09/06/16 09:07 Respiratory Rate 18 09/06/16 09:07 Blood Pressure 138/97 09/06/16 09:07 O2 Sat by Pulse Oximetry (%) Laboratory Tests 09/04/16 09/05/16 09/05/16 15:54 07:15 07:15 WBC 4.9 RBC 3.53 L Hgb 10.9 Hct 32.9 MCV 93.0 MCH 30.8 MCHC 33.1 RDW 16.2 H Plt Count 293 MPV 7.9 Sodium 144 Potassium 3.4 L Chloride 109 H Carbon Dioxide 29 D Anion Gap 6 L BUN 15 D Creatinine 0.8 Creat Clearance w eGFR > 60 Random Glucose 74 D Calcium 8.2 L Total Bilirubin 0.1 L D AST 18 ALT 20 Alkaline Phosphatase 92 D Total Protein 6.5 Albumin 3.0 L Serum , Qual Urine Color Yellow Urine Appearance Clear Urine pH 5.0 Ur Specific [place] >= 1.030 H Urine Protein Negative Urine Glucose (UA) Negative Urine Ketones Negative Urine Blood Negative Urine Nitrite Negative Urine Bilirubin Negative Urine Urobilinogen Negative Ur Leukocyte Esterase 1+ H Urine RBC 2 Urine WBC 4 Ur Epithelial Cells Few Urine Mucus Few RPR Titer 09/05/16 09/05/16 07:15 07:15 WBC RBC Hgb Hct MCV MCH MCHC RDW Plt Count MPV Sodium Potassium Chloride Carbon Dioxide Anion Gap BUN Creatinine Creat Clearance w eGFR Random Glucose Calcium Total Bilirubin AST ALT Alkaline Phosphatase Total Protein Albumin Serum , Qual Negative Urine Color Urine Appearance Urine pH Ur Specific [place] Urine Protein Urine Glucose (UA) Urine Ketones Urine Blood Urine Nitrite Urine Bilirubin Urine Urobilinogen Ur Leukocyte Esterase Urine RBC Urine WBC Ur Epithelial Cells Urine Mucus RPR Titer Nonreactive awake/alert ambulating no acute distress Assessment: 09/06/16 09:18 withdrawal sx Plan: continue detox increase fluids
[2016-09-06] MEDS: PRENATAL VITAMINS W/ FOLIC ACID TABLET (FP) PO SCH (10:55)
[2016-09-06] MEDS: POTASSIUM CHLORIDE TABS 20 MEQ TABLET.ER (FP) PO SCH (10:55)
[2016-09-06] MEDS: chlordiazePOXIDE 5 MG CAPSULE PO SCH ×2 (17:49→22:27)
[2016-09-06] MEDS: THIAMINE HCL 100 MG TABLET (FP) PO SCH (22:27)
[2016-09-06] MEDS: QUEtiapine FUMARATE 100 MG TABLET (FP) PO SCH (22:28)
[2016-09-06] MEDS: PATIENT'S OWN MEDICATION (NON-FORMULARY) (Dolutegravir Sodium 0 MG) PO SCH (22:29)
[2016-09-06] MEDS: EMTRICITABINE 200MG/TENOFOVIR 300MG PO SCH (22:29)
[2016-09-07] MEDS: chlordiazePOXIDE 5 MG CAPSULE PO SCH ×2 (07:37→10:46)
--- NOTE | 2016-09-07 10:34 | PN ---
[facility] Progress Note (SOAP) Subjective: tired irritable Objective: 09/07/16 10:33 Vital Signs Temperature 98 F 09/07/16 06:32 Pulse Rate 77 09/07/16 06:32 Respiratory Rate 18 09/07/16 06:32 Blood Pressure 136/83 09/07/16 06:32 O2 Sat by Pulse Oximetry (%) awake/alert ambulating no acute distress Assessment: 09/07/16 10:34 withdrawal sx Plan: continue detox increase fluids d/c in am
[2016-09-07] MEDS: POTASSIUM CHLORIDE TABS 20 MEQ TABLET.ER (FP) PO SCH (10:46)
[2016-09-07] MEDS: PRENATAL VITAMINS W/ FOLIC ACID TABLET (FP) PO SCH (10:46)
[2016-09-07] MEDS: NAPROXEN 500 MG TABLET (FP) PO PRN (10:46)
[2016-09-07] MEDS: chlordiazePOXIDE HCL 10 MG CAPSULE PO SCH ×2 (19:26→22:35)
[2016-09-07] MEDS: QUEtiapine FUMARATE 100 MG TABLET (FP) PO SCH (22:35)
[2016-09-07] MEDS: EMTRICITABINE 200MG/TENOFOVIR 300MG PO SCH (22:36)
[2016-09-07] MEDS: PATIENT'S OWN MEDICATION (NON-FORMULARY) (Dolutegravir Sodium 0 MG) PO SCH (22:36)
[2016-09-07] MEDS: THIAMINE HCL 100 MG TABLET (FP) PO SCH (22:36)
[2016-09-08] MEDS: chlordiazePOXIDE HCL 10 MG CAPSULE PO SCH ×2 (06:48→10:10)
[2016-09-08 06:53] VITALS: BP 116/76; PULSE 76; TEMP 98
--- NOTE | 2016-09-08 08:25 | DS ---
[facility] Detox Discharge Summary Admission Date: 09/04/16 Discharge Date: 09/08/16 - History Present History: Alcohol Dependence, Cocaine Dependence - Physical Exam Results Vital Signs: Vital Signs Temperature 98 F 09/08/16 06:52 Pulse Rate 76 09/08/16 06:52 Respiratory Rate 18 09/08/16 06:52 Blood Pressure 116/76 09/08/16 06:52 O2 Sat by Pulse Oximetry (%) - Treatment Hospital Course: Detox Protocol Followed, Detoxed Safely, Responded well, Discharged Condition Good - Medication Discharge Medications: Ambulatory Orders Quetiapine Fumarate [Seroquel] 300 mg PO BID 12/25/15 Albuterol Sulfate Inhaler - [Ventolin HFA Inhaler -] 2 inh PO Q4H PRN #1 inhaler 12/29/15 Naproxen [Naprosyn -] 500 mg PO BID #30 tablet 12/29/15 Dolutegravir Sodium [Tivicay] 50 mg PO HS 09/04/16 Emtricitabine/Tenofovir (Tdf) [Truvada 200 mg-300 mg Tablet] 1 each PO HS - Diagnosis (1) Alcohol dependence with uncomplicated withdrawal Current Visit: Yes Status: Chronic (2) Arthritis Current Visit: Yes Status: Chronic (3) Cocaine dependence, uncomplicated Current Visit: Yes Status: Chronic (4) Nicotine dependence Current Visit: Yes Status: Chronic Qualifiers: Nicotine product type: cigarettes Substance use status: uncomplicated Qualified Code(s): F17.210 - Nicotine dependence, cigarettes, uncomplicated (5) Asthma Current Visit: Yes Status: Chronic (6) Bipolar II disorder Current Visit: Yes Status: Chronic (7) HIV (human immunodeficiency virus infection) Current Visit: Yes Status: Chronic - AMA Did Patient Leave Against Medical Advice: No
[2016-09-08] MEDS: POTASSIUM CHLORIDE TABS 20 MEQ TABLET.ER (FP) PO SCH (10:08)
[2016-09-08] MEDS: PRENATAL VITAMINS W/ FOLIC ACID TABLET (FP) PO SCH (10:08)
== END 2016-09-08 10:25 | disposition home or self-care (01) | DRG 774 ==
LOC: YASAS 10:09 → Y3N 12:13 → Y6N 13:25
PROVIDERS: ADMIT Internal Medicine; ATTEND Internal Medicine
PROC: HZ2ZZZZ Detoxification Services for Substance Abuse Treatment (ICD-10-PCS; principal; 2016-09-04)
DX: F10.230 Alcohol dependence with withdrawal, uncomplicated (principal); F14.20 Cocaine dependence, uncomplicated; F17.210 Nicotine dependence, cigarettes, uncomplicated; F31.81 Bipolar II disorder; F19.24 Other psychoactive substance dependence with psychoactive substance-induced mood disorder; J45.909 Unspecified asthma, uncomplicated; Z21 Asymptomatic human immunodeficiency virus [HIV] infection status; M19.90 Unspecified osteoarthritis, unspecified site; Z87.42 Personal history of other diseases of the female genital tract; Z91.5 Personal history of self-harm
CPT/HCPCS: 36415; 80053; 81003; 81015; 84703; 85027; 86593; 93005; 93010

== ENCOUNTER 2017-03-18 11:31 | Inpatient (IN) | payer OTHER ==
[2017-03-18 12:33] VITALS: BMI 26.6
--- NOTE | 2017-03-18 17:46 | HP ---
CIWA Score - CIWA Score Nausea/Vomitin Muscle Tremors: 1-None Visible, but [place] Anxiety: 3 Agitation: 1-Slight > Activity Paroxysmal Sweats: 1-Minimal Palms Moist Orientation: 1-Uncertain about Date Tacttile Disturbances: 2-Mild Itch/Numbness/Burn Auditory Disturbances: 0-None Visual Disturbances: 0-None Headache: 2-Mild CIWA-Ar Total Score: 13 Admission ROS BHS - HPI Chief Complaint: WITHDRAWAL SYMPTOMS Allergies/Adverse Reactions: Allergies Allergy/AdvReac Type Severity Reaction Status Date / Time No Known Allergies Allergy Verified 03/18/17 16:26 History of Present Illness: 51 Y.O. WOMAN WITH A HISTORY OF ALCOHOL AND COCAINE DEPENDENCE IS HERE SEEKING DETOX. SHE WAS LAST HERE FOR DETOX IN 08/2016. HER LONGEST PERIOD SOBER HAS BEEN 16 MONTHS. Exam Limitations: No Limitations - Ebola screening Have you traveled outside of the country in the last 21 days: No Have you had contact with anyone from an Ebola affected area: No Have you been sick,other than usual withdrawal symptoms: No - Review of Systems Constitutional: Chills, Loss of Appetite, Unexplained wgt Loss EENT: reports: Nose Congestion Respiratory: reports: Cough, Shortness of Breath Cardiac: reports: No Symptoms Reported GI: reports: No Symptoms Reported : reports: No Symptoms Reported Musculoskeletal: reports: Back Pain, Joint Pain, Joint Stiffness, Other Integumentary: reports: No Symptoms Reported Neuro: reports: No Symptoms reported Endocrine: reports: No Symptoms Reported Hematology: reports: Anemia Psychiatric: reports: Mood/Affect Appropiate, Depressed Other Systems: Reviewed and Negative Patient History - Patient Medical History Hx Anemia: Yes Hx Asthma: Yes Hx Chronic Obstructive Pulmonary Disease (COPD): No Hx Cancer: No Hx Cardiac Disorders: No Hx Congestive Heart Failure: No Hx Hypertension: No Hx Hypercholesterolemia: No Hx Pacemaker: No HX Cerebrovascular Accident: No Hx Seizures: No Hx Dementia: No Hx Diabetes: No Hx Gastrointestinal Disorders: No Hx Liver Disease: No Hx Genitourinary Disorders: No Hx Sexually Transmitted Disorders: Yes (SYPHILIS (TREATED)) Hx Renal Disease (ESRD): No Hx Thyroid Disease: No Hx Human Immunodeficiency Virus (HIV): Yes (DX: 05/2016) Hx Hepatitis C: No Hx Depression: Yes Hx Suicide Attempt: No Hx Bipolar Disorder: No Hx Schizophrenia: No - Patient Surgical History Past Surgical History: Yes Hx Neurologic Surgery: No Hx Cataract Extraction: No Hx Cardiac Surgery: No Hx Lung Surgery: No Hx Breast Surgery: No Hx Breast Biopsy: No Hx Abdominal Surgery: Yes (UMBILICAL HERNIA REPAIR IN 2009) Hx Appendectomy: No Hx Cholecystectomy: No Hx Genitourinary Surgery: No Hx Section: No Hx Orthopedic Surgery: No Hx Hysterectomy: No Other Surgical History: D&C IN 1979 AND 1983 Anesthesia Reaction: No - PPD History Previous Implant?: Yes Documented Results: Negative w/o proof Implanted On Prior [facility] Admission?: Yes Date: 12/27/15 Results: 0 mm PPD to be Administered?: Yes - Reproductive History Patient is a Female of Child Bearing Age (11 -55 yrs old): Yes Last Menstrual Period: 01/22/16 Patient : No - Smoking Cessation Smoking history: Current every day smoker Have you smoked in the past 12 months: Yes Aproximately how many cigarettes per day: 3 Cigars Per Day: 0 Hx Chewing Tobacco Use: No Initiated information on smoking cessation: Yes 'Breaking Loose' booklet given: 03/18/17 - Substance & Tx. History Hx Alcohol Use: Yes Hx Substance Use: Yes Substance Use Type: Alcohol, Cocaine Hx Substance Use Treatment: Yes (DETOX: 08/2016) - Substances Abused Alcohol Route: Oral Frequency: Daily Amount used: 1/2 pint vodka Age of first use: 12 Date of Last Use: 03/17/17 Cocaine Route: Inhalation Frequency: Daily Amount used: $20 and up Age of first use: 16 Date of Last Use: 03/16/17 Family Disease History - Family Disease History Family Disease History: Heart Disease: Father (, [place]), [place]: Mother ( ), Other: Father, Mother, Brother (no contact), Sister (healthy), Son ( healthy), Daughter (no contact) Admission Physical Exam BHS - Vital Signs Vital Signs: Vital Signs - 24 hr 03/18/17 12:26 Temperature 96.9 F L Pulse Rate 78 Respiratory 18 Rate Blood Pressure 140/94 - Physical General Appearance: Yes: Appropriately Dressed, Anxious HEENTM: Yes: Hearing grossly Normal, Normal ENT Inspection, Normocephalic Respiratory: Yes: Chest Non-Tender, Lungs Clear, Normal Breath Sounds, No Respiratory Distress, No Accessory Muscle Use Neck: Yes: No masses,lesions,Nodules, Trachea in good position Breast: Yes: Breast Exam Deferred Cardiology: Yes: Regular Rhythm, Regular Rate Abdominal: Yes: Normal Bowel Sounds, Non Tender Genitourinary: Yes: Other (NO COMPLAINTS REPORTED) Back: Yes: Normal Inspection Musculoskeletal: Yes: full range of Motion, Gait Steady Extremities: Yes: Normal Capillary Refill, Normal Inspection, Normal Range of Motion, Non-Tender Neurological: Yes: Alert, Motor Strength 5/5, Normal Mood/Affect, Normal Response Integumentary: Yes: Normal Color, Dry, Warm Lymphatic: Yes: Within Normal Limits - Diagnostic (1) Alcohol dependence with uncomplicated withdrawal Current Visit: Yes Status: Chronic (2) Arthritis Current Visit: Yes Status: Chronic (3) Asthma Current Visit: Yes Status: Chronic (4) Cocaine dependence, uncomplicated Current Visit: Yes Status: Chronic (5) HIV (human immunodeficiency virus infection) Current Visit: Yes Status: Chronic (6) Nicotine dependence Current Visit: Yes Status: Chronic Qualifiers: Nicotine product type: cigarettes Substance use status: uncomplicated Qualified Code(s): F17.210 - Nicotine dependence, cigarettes, uncomplicated Cleared for Admission [facility] - Detox or Rehab [facility] Level of Care: Medically Managed Detox Regimen/Protocol: Librium [facility] Breath Alcohol Content Breath Alcohol Content: 0 Urine Pregancy Test - Result Urine Test Results: Negative- NO Line Present Urine Drug Screen - Results Drug Screen Negative: No Urine Drug Screen Results: OPI-Opiates
[2017-03-18] MEDS ORDERED: P-EPHED 60MG/TRIPROLIDI 2.5MG TABLET PO PRN (17:55)
[2017-03-18] MEDS ORDERED: MAGNESIUM HYDROX 2400MG/30ML ORAL SUSPENSION 30 ML CUP PO PRN (17:55)
[2017-03-18] MEDS ORDERED: chlordiazePOXIDE HCL 25 MG CAPSULE PO ONE (17:55)
[2017-03-18] MEDS ORDERED: MENTHOL/PHENOL 1 EACH UD MM PRN (17:55)
[2017-03-18] MEDS ORDERED: guaiFENesin/D-METHORPHAN HB 10 ML UNIT-DOSE CUPS PO PRN (17:55)
[2017-03-18] MEDS ORDERED: MAGNESIUM CITRATE 300 ML BOTTLE PO PRN (17:55)
[2017-03-18] MEDS ORDERED: hydrOXYzine PAMOATE 50 MG CAPSULE (FP) PO PRN (17:55)
[2017-03-18] MEDS ORDERED: chlordiazePOXIDE HCL 25 MG CAPSULE PO PRN (17:55)
[2017-03-18] MEDS ORDERED: ACETAMINOPHEN 325 MG TABLET (FP) PO PRN (17:55)
[2017-03-18] MEDS ORDERED: MAG HYDROX/AL HYDROX/SIMETH 30 ML UNIT-DOSE CUP PO PRN (17:55)
[2017-03-18] MEDS ORDERED: LOPERAMIDE HCL 2 MG CAPSULE PO PRN (17:55)
[2017-03-18] MEDS ORDERED: NICOTINE POLACRILEX 2 MG GUM BC PRN (17:55)
[2017-03-18] MEDS ORDERED: ALBUTEROL SO4 18 GM HFA INHALER IH PRN (17:58)
[2017-03-18] MEDS ORDERED: diphenhydrAMINE HCL 50 MG CAPSULE PO ONE (22:00)
[2017-03-18] MEDS: chlordiazePOXIDE HCL 25 MG CAPSULE PO SCH (23:00)
[2017-03-18] MEDS: THIAMINE HCL 100 MG TABLET (FP) PO SCH (23:01)
[2017-03-18] MEDS: NAPROXEN 500 MG TABLET (FP) PO SCH (23:17)
[2017-03-18 23:31] LABS: URINE APPEARANCE CLEAR; URINE BILIRUBIN NEGATIVE (NEGATIVE); URINE BLOOD NEGATIVE (NEGATIVE); URINE COLOR LTYELLOW; URINE GLUCOSE (UA) NEGATIVE (NEGATIVE); URINE KETONE NEGATIVE (NEGATIVE); URINE LEUK ESTERASE NEGATIVE (NEGATIVE); URINE NITRITE NEGATIVE (NEGATIVE); URINE PROTEIN NEGATIVE (NEGATIVE); URINE UROBILINOGEN NEGATIVE mg/dL (0.2-1.0)
[2017-03-19] MEDS: chlordiazePOXIDE HCL 25 MG CAPSULE PO SCH ×4 (05:57→22:24)
[2017-03-19 10:04] LABS: HEMATOCRIT 31.8 % (32.4-45.2); HEMOGLOBIN 10.2 GM/dL (10.7-15.3); MCH 29.2 pg (25.7-33.7); MCHC 32.1 g/dl (32.0-36.0); MEAN CELL VOLUME 90.8 fl (80-96); MEAN PLT VOLUME 8.1 fl (7.5-11.1); PLATELET COUNT 448 K/MM3 (134-434); RDW 15.7 % (11.6-15.6); WHITE BLOOD COUNT 7.6 K/mm3 (4.0-10.0)
[2017-03-19 10:10] LABS: ALBUMIN 3.4 g/dl (3.4-5.0); ANION GAP 9 (8-16); BILIRUBIN,TOTAL 0.2 mg/dL (0.2-1.0); BLOOD UREA NITROGEN 29 mg/dL (7-18); CALCIUM 8.3 mg/dL (8.5-10.1); CHLORIDE 107 mmol/L (98-107); CO2 26 mmol/L (21-32); CREATININE 1.2 mg/dL (0.55-1.02); GLUCOSE,RANDOM 78 mg/dL (74-106); POTASSIUM 4.3 mmol/L (3.5-5.1); SGOT/AST 20 U/L (15-37); SGPT/ALT 24 U/L (12-78); SODIUM 142 mmol/L (136-145)
[2017-03-19 10:11] LABS: ALK PHOS 89 U/L (45-117); TOT PROT 7.5 g/dl (6.4-8.2)
[2017-03-19] MEDS: NAPROXEN 500 MG TABLET (FP) PO SCH ×2 (10:21→22:26)
[2017-03-19] MEDS: PRENATAL VITAMINS W/ FOLIC ACID TABLET (FP) PO SCH (10:21)
[2017-03-19] MEDS: EMTRICITABINE 200MG/TENOFOVIR 300MG PO SCH (10:21)
--- NOTE | 2017-03-19 12:27 | EKG ---
Test Reason : Blood Pressure : / mmHG Vent. Rate : 075 BPM Atrial Rate : 075 BPM P-R Int : 156 ms QRS Dur : 126 ms QT Int : 436 ms P-R-T Axes : 075 070 060 degrees QTc Int : 486 ms NORMAL SINUS RHYTHM RIGHT BUNDLE BRANCH BLOCK ABNORMAL ECG WHEN COMPARED WITH ECG OF 04-SEP-2016 13:42, NO SIGNIFICANT CHANGE WAS FOUND Confirmed by MD SAUL, MINO ([id number]) on 03/19/2017 12:27:19 PM Referred By: Confirmed By:MINO HUGHES MD
--- NOTE | 2017-03-19 12:57 | PN ---
S CIWA - CIWA Score Nausea/Vomitin Muscle Tremors: 3 Anxiety: 4-Mod. Anxious/Guarded Agitation: 3 Paroxysmal Sweats: 3 Orientation: 0-Oriented Tacttile Disturbances: 0-None Auditory Disturbances: 0-None Visual Disturbances: 0-None Headache: 0-None Present CIWA-Ar Total Score: 16 S Progress Note (SOAP) Subjective: sleep disturbance shakes Objective: 03/19/17 12:56 Vital Signs Temperature 98.2 F 03/19/17 11:14 Pulse Rate 89 03/19/17 11:14 Respiratory Rate 18 03/19/17 11:14 Blood Pressure 113/93 03/19/17 11:14 O2 Sat by Pulse Oximetry (%) Laboratory Last Values WBC 7.6 K/mm3 (4.0-10.0) D 03/19/17 06:06 RBC 3.50 M/mm3 (3.60-5.2) L 03/19/17 06:06 Hgb 10.2 GM/dL (10.7-15.3) L 03/19/17 06:06 Hct 31.8 % (32.4-45.2) L 03/19/17 06:06 MCV 90.8 fl (80-96) 03/19/17 06:06 MCH 29.2 pg (25.7-33.7) 03/19/17 06:06 MCHC 32.1 g/dl (32.0-36.0) 03/19/17 06:06 RDW 15.7 % (11.6-15.6) H 03/19/17 06:06 Plt Count 448 K/MM3 (134-434) H D 03/19/17 06:06 MPV 8.1 fl (7.5-11.1) 03/19/17 06:06 Sodium 142 mmol/L (136-145) 03/19/17 06:06 Potassium 4.3 mmol/L (3.5-5.1) 03/19/17 06:06 Chloride 107 mmol/L (98-107) 03/19/17 06:06 Carbon Dioxide 26 mmol/L (21-32) 03/19/17 06:06 Anion Gap 9 (8-16) 03/19/17 06:06 BUN 29 mg/dL (7-18) H 03/19/17 06:06 Creatinine 1.2 mg/dL (0.55-1.02) H 03/19/17 06:06 Creat Clearance w eGFR 46.99 (>60) 03/19/17 06:06 Random Glucose 78 mg/dL (74-106) 03/19/17 06:06 Calcium 8.3 mg/dL (8.5-10.1) L 03/19/17 06:06 Total Bilirubin 0.2 mg/dL (0.2-1.0) D 03/19/17 06:06 AST 20 U/L (15-37) 03/19/17 06:06 ALT 24 U/L (12-78) 03/19/17 06:06 Alkaline Phosphatase 89 U/L (45-117) 03/19/17 06:06 Total Protein 7.5 g/dl (6.4-8.2) 03/19/17 06:06 Albumin 3.4 g/dl (3.4-5.0) 03/19/17 06:06 Urine Color Ltyellow 03/18/17 23:13 Urine Appearance Clear 03/18/17 23:13 Urine pH 7.0 (5.0-8.0) D 03/18/17 23:13 Ur Specific [place] 1.021 (1.001-1.035) 03/18/17 23:13 Urine Protein Negative (NEGATIVE) 03/18/17 23:13 Urine Glucose (UA) Negative (NEGATIVE) 03/18/17 23:13 Urine Ketones Negative (NEGATIVE) 03/18/17 23:13 Urine Blood Negative (NEGATIVE) 03/18/17 23:13 Urine Nitrite Negative (NEGATIVE) 03/18/17 23:13 Urine Bilirubin Negative (NEGATIVE) 03/18/17 23:13 Urine Urobilinogen Negative mg/dL (0.2-1.0) 03/18/17 23:13 Ur Leukocyte Esterase Negative (NEGATIVE) 03/18/17 23:13 RPR Titer Nonreactive (NONREACTIVE) 03/19/17 06:06 labs noted Assessment: 03/19/17 12:57 withdrawal sx Plan: continue detox
[2017-03-19] MEDS: PATIENT'S OWN MEDICATION (NON-FORMULARY) (Dolutegravir Sodium 50 MG) PO SCH (14:00)
--- NOTE | 2017-03-19 16:21 | CONSULT ---
[facility] Psychiatric Consult - Data Date of interview: 03/19/17 Admission source: [facility] Identifying data: his is one of the multiple admissions to [facility] for this 51 y/o AA female seeking detox treatment on for alcohol and cocaine dependence.Patient is single,a mother of two,domiciled,unemployed and supported on SSI benefits. Substance Abuse History: Smoking history: Current every day smoker. Have you smoked in the past 12 months: Yes. Aproximately how many cigarettes per day: 3. Cigars Per Day: 0. Hx Chewing Tobacco Use: No. Initiated information on smoking cessation: Yes. 'Breaking Loose' booklet given: 03/18/17. - Substance & Tx. History. Hx Alcohol Use: Yes. Hx Substance Use: Yes. Substance Use Type : Alcohol, Cocaine. Hx Substance Use Treatment: Yes (DETOX: 08/2016). - Substances Abused. Alcohol. Route: Oral. Frequency: Daily. Amount used: 1 /2 pint vodka. Age of first use: 12. Date of Last Use: 03/17/17. Cocaine. Route: Inhalation. Frequency: Daily. Amount used: $20 and up. Age of first use: 16. Date of Last Use: 03/16/17 Medical History: Significant for anemia,bronchial asthma,past treatment for syphilis,history of umbilical herniorraphy and dilatation/curettage (1983 + 1989 ). Psychiatric History: Patient declares that longitudinal history has not changed since last encounter of August 2016 : " Early onset of psychiatric illness (age [age]).Circumstances : depression and suicide attempt via overdose with aspirin that led to a psychiatric admission to [facility].Diagnosed with Bipolar Disorder during incarceration at [facility] and treated with seroquel.Still prescribed seroquel at various doses (during detox/rehab stays) but the patient continues to endorse non-adherence to OPD care.Lost to follow up since [facility] [place] (December 2015) .Currently followed at a mental health clinic in [facility].Maintained on seroquel 300 mg/hs. Physical/Sexual Abuse/Trauma History: Patient denies. Additional Comment: Urine Drug Screen Results: OPI-Opiates.Noted. Mental Status Exam - Mental Status Exam Alert and Oriented to: Time, Place, Person Cognitive Function: Good Patient Appearance: Well Groomed Mood: Hopeful, Euthymic Affect: Appropriate, Normal Range Patient Behavior: Appropriate, Cooperative Speech Pattern: Clear, Appropriate Voice Loudness: Normal Thought Process: Intact, Goal Oriented Thought Disorder: Not Present Hallucinations: Denies Suicidal Ideation: Denies Homicidal Ideation: Denies Insight/Judgement: Poor Sleep: Poorly, Difficulty falling asleep Appetite: Good Muscle strength/Tone: Normal Gait/Station: Normal Psychiatric Findings - Problem List ([place] 1, 2,3) (1) Alcohol dependence with uncomplicated withdrawal Current Visit: Yes Status: Acute (2) Nicotine dependence Current Visit: Yes Status: Acute Qualifiers: Nicotine product type: cigarettes Substance use status: uncomplicated Qualified Code(s): F17.210 - Nicotine dependence, cigarettes, uncomplicated (3) Substance induced mood disorder Current Visit: Yes Status: Acute (4) Insomnia Current Visit: Yes Status: Acute (5) Bipolar disorder Current Visit: No Status: Chronic Comment: As per self-report.Chronically non-adherent to OPD care + medications.Currently asymptomatic.On seroquel. - Initial Treatment Plan Initial Treatment Plan: Records at [facility] revisited.Psychoeducation provided in this session.Sleep hygiene discussed.Detoxification in progress.Seroquel 100 mg po hs (reduced).Ordered.Side effects/benefits discussed with the patient.Ms Valadez has verbally consented to follow this plan of care.Made aware of potential for oversedation.Will follow response.Close observation.
[2017-03-19] MEDS: THIAMINE HCL 100 MG TABLET (FP) PO SCH (22:24)
[2017-03-19] MEDS: QUEtiapine FUMARATE 100 MG TABLET (FP) PO SCH (22:24)
[2017-03-20] MEDS: chlordiazePOXIDE HCL 25 MG CAPSULE PO SCH ×3 (06:00→17:18)
--- NOTE | 2017-03-20 10:05 | PN ---
S CIWA - CIWA Score Nausea/Vomitin-No Nausea/No Vomiting Muscle Tremors: 4-Moderate,w/Arms Extend Anxiety: 3 Agitation: 3 Paroxysmal Sweats: 1-Minimal Palms Moist Orientation: 0-Oriented Tacttile Disturbances: 0-None Auditory Disturbances: 0-None Visual Disturbances: 0-None Headache: 0-None Present CIWA-Ar Total Score: 11 BHS Progress Note (SOAP) Subjective: anxiety sweat tremor Objective: 03/20/17 10:04 Vital Signs Temperature 96.6 F L 03/20/17 06:00 Pulse Rate 79 03/20/17 06:00 Respiratory Rate 18 03/20/17 06:00 Blood Pressure 113/73 03/20/17 06:00 O2 Sat by Pulse Oximetry (%) Laboratory Last Values WBC 7.6 K/mm3 (4.0-10.0) D 03/19/17 06:06 RBC 3.50 M/mm3 (3.60-5.2) L 03/19/17 06:06 Hgb 10.2 GM/dL (10.7-15.3) L 03/19/17 06:06 Hct 31.8 % (32.4-45.2) L 03/19/17 06:06 MCV 90.8 fl (80-96) 03/19/17 06:06 MCH 29.2 pg (25.7-33.7) 03/19/17 06:06 MCHC 32.1 g/dl (32.0-36.0) 03/19/17 06:06 RDW 15.7 % (11.6-15.6) H 03/19/17 06:06 Plt Count 448 K/MM3 (134-434) H D 03/19/17 06:06 MPV 8.1 fl (7.5-11.1) 03/19/17 06:06 Sodium 142 mmol/L (136-145) 03/19/17 06:06 Potassium 4.3 mmol/L (3.5-5.1) 03/19/17 06:06 Chloride 107 mmol/L (98-107) 03/19/17 06:06 Carbon Dioxide 26 mmol/L (21-32) 03/19/17 06:06 Anion Gap 9 (8-16) 03/19/17 06:06 BUN 29 mg/dL (7-18) H 03/19/17 06:06 Creatinine 1.2 mg/dL (0.55-1.02) H 03/19/17 06:06 Creat Clearance w eGFR 46.99 (>60) 03/19/17 06:06 Random Glucose 78 mg/dL (74-106) 03/19/17 06:06 Calcium 8.3 mg/dL (8.5-10.1) L 03/19/17 06:06 Total Bilirubin 0.2 mg/dL (0.2-1.0) D 03/19/17 06:06 AST 20 U/L (15-37) 03/19/17 06:06 ALT 24 U/L (12-78) 03/19/17 06:06 Alkaline Phosphatase 89 U/L (45-117) 03/19/17 06:06 Total Protein 7.5 g/dl (6.4-8.2) 03/19/17 06:06 Albumin 3.4 g/dl (3.4-5.0) 03/19/17 06:06 Urine Color Ltyellow 03/18/17 23:13 Urine Appearance Clear 03/18/17 23:13 Urine pH 7.0 (5.0-8.0) D 03/18/17 23:13 Ur Specific [place] 1.021 (1.001-1.035) 03/18/17 23:13 Urine Protein Negative (NEGATIVE) 03/18/17 23:13 Urine Glucose (UA) Negative (NEGATIVE) 03/18/17 23:13 Urine Ketones Negative (NEGATIVE) 03/18/17 23:13 Urine Blood Negative (NEGATIVE) 03/18/17 23:13 Urine Nitrite Negative (NEGATIVE) 03/18/17 23:13 Urine Bilirubin Negative (NEGATIVE) 03/18/17 23:13 Urine Urobilinogen Negative mg/dL (0.2-1.0) 03/18/17 23:13 Ur Leukocyte Esterase Negative (NEGATIVE) 03/18/17 23:13 RPR Titer Nonreactive (NONREACTIVE) 03/19/17 06:06 lab noted Assessment: 03/20/17 10:04 withdrawal sx Plan: continue detox
[2017-03-20] MEDS: PATIENT'S OWN MEDICATION (NON-FORMULARY) (Dolutegravir Sodium 50 MG) PO SCH (10:40)
[2017-03-20] MEDS: EMTRICITABINE 200MG/TENOFOVIR 300MG PO SCH (10:41)
[2017-03-20] MEDS: NAPROXEN 500 MG TABLET (FP) PO SCH ×2 (10:41→22:22)
[2017-03-20] MEDS: PRENATAL VITAMINS W/ FOLIC ACID TABLET (FP) PO SCH (10:41)
[2017-03-20] MEDS: LIDOCAINE 5% TOPICAL PATCH TP SCH ×2 (13:49→13:51)
[2017-03-20] MEDS: LIDOCAINE PATCH REMOVAL MC SCH (22:22)
[2017-03-20] MEDS: QUEtiapine FUMARATE 100 MG TABLET (FP) PO SCH (22:22)
[2017-03-20] MEDS: THIAMINE HCL 100 MG TABLET (FP) PO SCH (22:22)
[2017-03-20] MEDS: chlordiazePOXIDE 5 MG CAPSULE PO SCH (22:23)
[2017-03-21] MEDS: chlordiazePOXIDE 5 MG CAPSULE PO SCH ×3 (06:26→18:13)
[2017-03-21] MEDS: NAPROXEN 500 MG TABLET (FP) PO SCH ×2 (10:30→22:23)
[2017-03-21] MEDS: PATIENT'S OWN MEDICATION (NON-FORMULARY) (Dolutegravir Sodium 50 MG) PO SCH (10:30)
[2017-03-21] MEDS: PRENATAL VITAMINS W/ FOLIC ACID TABLET (FP) PO SCH (10:30)
[2017-03-21] MEDS: EMTRICITABINE 200MG/TENOFOVIR 300MG PO SCH (10:30)
[2017-03-21] MEDS: LIDOCAINE 5% TOPICAL PATCH TP SCH (11:00)
--- NOTE | 2017-03-21 12:03 | PN ---
Psychiatric Progress Note Vital Signs: Vital Signs Period Temp Pulse Resp BP Sys/Blake Pulse Ox Last 24 Hr 96.8 F-99 F 82-105 18-20 113-147/67-97 Date of Session: 03/21/17 Chief Complaint:: "I'm having difficulty sleeping. I need seroquel increased." HPI: Pt. admitted to for alcohol and cocaine dependence. ROS: Unremarkable. Current Medications: Active Medications Generic Name Dose Route Start Last Admin Trade Name Freq PRN Reason Stop Dose Admin Acetaminophen 650 mg 03/18/17 17:55 Tylenol - PO Q4H PRN FEVER Al Hydroxide/Mg Hydroxide 30 ml 03/18/17 17:55 Mylanta Oral Suspension - PO Q6H PRN DYSPEPSIA Albuterol Sulfate 2 puff 03/18/17 17:58 Ventolin Hfa Inhaler - IH Q4H PRN ASTHMA Chlordiazepoxide HCl 15 mg 03/20/17 23:00 03/21/17 10:31 Librium - PO 03/21/17 17:01 15 mg [id number] CATIE Administration Chlordiazepoxide HCl 25 mg 03/18/17 17:55 Librium - PO 03/21/17 17:54 Q4H PRN WITHDRAWAL(CONT SUBST) Chlordiazepoxide HCl 10 mg 03/21/17 23:00 Librium - PO 03/22/17 17:01 [id number] CATIE Emtricitabine/Tenofovir 1 tab 03/19/17 10:00 03/21/17 10:30 Truvada PO 1 tab DAILY CATIE Administration Eucalyptus/Menthol/Phenol/Sorbitol 1 each 03/18/17 17:55 Cepastat Lozenge - MM Q4H PRN SORE THROAT Guaifenesin 10 ml 03/18/17 17:55 Robitussin Dm - PO Q6H PRN COUGH Hydroxyzine Pamoate 50 mg 03/18/17 17:55 03/20/17 23:47 Vistaril - PO 50 mg Q4H PRN Administration AGITATION Lidocaine 1 patch 03/20/17 11:48 03/20/17 13:51 Lidoderm Patch - TP 1 patch DAILY CATIE Administration Loperamide HCl 4 mg 03/18/17 17:55 Imodium - PO Q6H PRN DIARRHEA Magnesium Citrate 300 ml 03/18/17 17:55 Citroma - PO Q48H PRN CONSTIPATION Magnesium Hydroxide 30 ml 03/18/17 17:55 Milk Of Magnesia - PO DAILY PRN CONSTIPATION Miscellaneous 1 each 03/20/17 22:00 03/20/17 22:22 Lidoderm Patch Removal MC Not Given DAILY@2200 CATIE Naproxen 500 mg 03/18/17 22:00 03/21/17 10:30 Naprosyn - PO 500 mg BID CATIE Administration Nicotine Polacrilex 2 mg 03/18/17 17:55 Nicorette Gum - BC Q2H PRN NICOTINE REPLACEMENT RX Non-Formulary Medication 50 mg 03/19/17 10:00 03/21/17 10:30 Dolutegravir Sodium PO 50 mg DAILY CATIE Administration Multivit/Folic Acid/Iron 1 tab 03/19/17 10:00 03/21/17 10:30 Vitamins (Sjr) - PO 1 tab DAILY CATIE Administration Pseudoephedrine/Triprolidine 1 combo 03/18/17 17:55 Actifed - PO TID PRN NASAL CONGESTION Quetiapine Fumarate 100 mg 03/19/17 22:00 03/20/17 22:22 Seroquel - PO 100 mg HS CATIE Administration Thiamine HCl 100 mg 03/18/17 22:00 03/20/17 22:22 Vitamin B1 - PO 100 mg HS CATIE Administration Medication(s) Change(s): Yes Current Side Effect: No Lab tests ordered: No Lab tests reviewed: Yes Provider note:: Psychiatric nurse practitioner approached patient concerning psychiatric reconsultation. Pt. requesting seroquel dose to be increased to 300mg. As per chart, patient has accepted seroquel 300mg with good effect. Pt. able to tolerate seroquel 100mg dose in addition to the detox protocol. No complaints of oversedation or dizziness reported. Will increase to seroquel 300mg qhs. Total face to face time:: 25 Mental Status Exam - Mental Status Exam Alert and Oriented to: Time, Place, Person Cognitive Function: Good Patient Appearance: Well Groomed Mood: Hopeful Affect: Appropriate Patient Behavior: Cooperative Speech Pattern: Appropriate Voice Loudness: Normal Thought Process: Goal Oriented Thought Disorder: Not Present Hallucinations: Denies Suicidal Ideation: Denies Homicidal Ideation: Denies Insight/Judgement: Poor Sleep: Poorly Appetite: Fair Muscle strength/Tone: Normal Gait/Station: Normal Psychiatric Treatment Plan - Problem List (1) Alcohol dependence with uncomplicated withdrawal Current Visit: Yes (2) Insomnia Current Visit: Yes (3) Nicotine dependence Current Visit: Yes Qualifiers: Nicotine product type: cigarettes Substance use status: uncomplicated Qualified Code(s): F17.210 - Nicotine dependence, cigarettes, uncomplicated (4) Substance induced mood disorder Current Visit: Yes (5) Bipolar disorder Current Visit: Yes Comment: As per self-report.Chronically non-adherent to OPD care + medications.Currently asymptomatic.On seroquel.
--- NOTE | 2017-03-21 14:27 | PN ---
BHS Progress Note (SOAP) Subjective: sleep disturbance shakes Objective: 03/21/17 14:26 Vital Signs Temperature 97.2 F L 03/21/17 10:37 Pulse Rate 90 03/21/17 10:37 Respiratory Rate 18 03/21/17 10:37 Blood Pressure 147/95 03/21/17 10:37 O2 Sat by Pulse Oximetry (%) Assessment: 03/21/17 14:27 withdrawal sx Plan: continue detox d/c tomorrow
[2017-03-21] MEDS ORDERED: QUEtiapine FUMARATE 300 MG TABLET PO SCH (17:11)
[2017-03-21] MEDS: chlordiazePOXIDE HCL 10 MG CAPSULE PO SCH (22:23)
[2017-03-21] MEDS: LIDOCAINE PATCH REMOVAL MC SCH (22:23)
[2017-03-21] MEDS: THIAMINE HCL 100 MG TABLET (FP) PO SCH (22:23)
[2017-03-22] MEDS: chlordiazePOXIDE HCL 10 MG CAPSULE PO SCH ×2 (06:00→10:04)
[2017-03-22 09:48] VITALS: BP 146/96; PULSE 113; TEMP 97
[2017-03-22] MEDS: PRENATAL VITAMINS W/ FOLIC ACID TABLET (FP) PO SCH (09:56)
[2017-03-22] MEDS: PATIENT'S OWN MEDICATION (NON-FORMULARY) (Dolutegravir Sodium 50 MG) PO SCH (09:57)
[2017-03-22] MEDS: NAPROXEN 500 MG TABLET (FP) PO SCH (09:57)
[2017-03-22] MEDS: LIDOCAINE 5% TOPICAL PATCH TP SCH (09:59)
[2017-03-22] MEDS: EMTRICITABINE 200MG/TENOFOVIR 300MG PO SCH (09:59)
--- NOTE | 2017-03-22 10:56 | DS ---
[facility] Detox Discharge Summary Admission Date: 03/18/17 Discharge Date: 03/22/17 - History Present History: Alcohol Dependence - Physical Exam Results Vital Signs: Vital Signs Temperature 97 F L 03/22/17 09:48 Pulse Rate 113 H 03/22/17 09:48 Respiratory Rate 200 H 03/22/17 09:48 Blood Pressure 146/96 03/22/17 09:48 O2 Sat by Pulse Oximetry (%) - Treatment Hospital Course: Detox Protocol Followed, Detoxed Safely, Responded well, Discharged Condition Good, Rehab Referral Accepted Patient has Accepted a Rehab Referral to: as per counselor arranged - Medication Discharge Medications: Ambulatory Orders Quetiapine Fumarate [Seroquel] 300 mg PO BID 12/25/15 Dolutegravir Sodium [Tivicay] 50 mg PO DAILY 09/04/16 Albuterol Sulfate Inhaler - [Ventolin HFA Inhaler -] 2 inh PO Q4H PRN #1 inhaler 09/08/16 Naproxen [Naprosyn -] 500 mg PO BID #30 tablet 09/08/16 Emtricitabine/Tenofovir (Tdf) [Truvada 200 mg-300 mg Tablet] 1 each PO DAILY Quetiapine Fumarate [Seroquel -] 300 mg PO HS #30 tablet 03/22/17 - Diagnosis (1) Alcohol dependence with uncomplicated withdrawal Current Visit: Yes Status: Acute (2) Nicotine dependence Current Visit: Yes Status: Acute Qualifiers: Nicotine product type: cigarettes Substance use status: in withdrawal Qualified Code(s): F17.213 - Nicotine dependence, cigarettes, with withdrawal (3) Asthma Current Visit: Yes Status: Chronic - AMA Did Patient Leave Against Medical Advice: No
== END 2017-03-22 09:51 | disposition home or self-care (01) | DRG 774 ==
LOC: YASAS 11:31 → Y6N 17:40
PROVIDERS: ADMIT Internal Medicine; ATTEND Internal Medicine
PROC: HZ2ZZZZ Detoxification Services for Substance Abuse Treatment (ICD-10-PCS; principal; 2017-03-18)
DX: F10.230 Alcohol dependence with withdrawal, uncomplicated (principal); F14.20 Cocaine dependence, uncomplicated; F17.210 Nicotine dependence, cigarettes, uncomplicated; F19.24 Other psychoactive substance dependence with psychoactive substance-induced mood disorder; F31.9 Bipolar disorder, unspecified; Z21 Asymptomatic human immunodeficiency virus [HIV] infection status; G47.00 Insomnia, unspecified; Z87.42 Personal history of other diseases of the female genital tract; J45.909 Unspecified asthma, uncomplicated
CPT/HCPCS: 36415; 80053; 81003; 85027; 86593; 93005; 93010

== ENCOUNTER 2017-08-04 11:49 | Inpatient (IN) | payer OTHER ==
[2017-08-04 12:14] VITALS: BMI 25.2
--- NOTE | 2017-08-04 14:56 | HP ---
CIWA Score - CIWA Score Nausea/Vomitin-No Nausea/No Vomiting Muscle Tremors: 4-Moderate,w/Arms Extend Anxiety: 4-Mod. Anxious/Guarded Agitation: 4-Moderately Restless Paroxysmal Sweats: 1-Minimal Palms Moist Orientation: 0-Oriented Tacttile Disturbances: 0-None Auditory Disturbances: 0-None Visual Disturbances: 0-None Headache: 0-None Present CIWA-Ar Total Score: 13 Admission ROS BHS - HPI Chief Complaint: ALCOHOL WITHDRAWAL SX Allergies/Adverse Reactions: Allergies Allergy/AdvReac Type Severity Reaction Status Date / Time No Known Allergies Allergy Verified 08/04/17 14:26 History of Present Illness: 52 Y/O AA/MALE WITH A HX OF ALCOHOL DEPENDENCE SEEKING DETOX TX. PT HAS PREVIOUS MULTIPLE TREATMENT EPISODES. PT ON TRUVADA AND TIVICAY DAILY RX PHYSICIAN-Kaia MURPHY. Exam Limitations: No Limitations - Ebola screening Have you traveled outside of the country in the last 21 days: No Have you had contact with anyone from an Ebola affected area: No Have you been sick,other than usual withdrawal symptoms: No Do you have a fever: No - Review of Systems Constitutional: Changes in sleep EENT: reports: Blurred Vision (WEARS GLASSES), Nose Congestion, Dental Problems (MISSING TEETH) Respiratory: reports: Shortness of Breath (HX ASTHMA), Wheezing GI: reports: Diarrhea, Nausea, Poor Fluid Intake, Vomiting : reports: No Symptoms Reported Musculoskeletal: reports: Back Pain, Joint Pain, Muscle Pain, Other (HX ARTHRITIS) Integumentary: reports: Other (BOIL UNDER RIGHT ARMPIT) Neuro: reports: Headache, Numbness, Tingling, Unsteady Gait Endocrine: reports: No Symptoms Reported Hematology: reports: Anemia (HX) Psychiatric: reports: Orientated x3, Anxious, Depressed Other Systems: Reviewed and Negative Patient History - Patient Medical History Hx Anemia: Yes Hx Asthma: Yes (MDI) Hx Chronic Obstructive Pulmonary Disease (COPD): No Hx Cancer: No Hx Cardiac Disorders: No Hx Congestive Heart Failure: No Hx Hypertension: No (ELEVATED ON ADMISSION-NO MED 155/103) Hx Hypercholesterolemia: No Hx Pacemaker: No HX Cerebrovascular Accident: No Hx Seizures: No Hx Dementia: No Hx Diabetes: No Hx Gastrointestinal Disorders: No Hx Liver Disease: No Hx Genitourinary Disorders: No Hx Sexually Transmitted Disorders: Yes (TREATED FOR SYPHILIS) Hx Renal Disease (ESRD): No Hx Thyroid Disease: No Hx Human Immunodeficiency Virus (HIV): Yes (DX: 05/2016-UNDETECTABLE NOW. TIVICAY ) Hx Hepatitis C: No Hx Depression: Yes (ON SEROQUEL) Hx Suicide Attempt: Yes (AT 9 Y/O TOOK ASPIRIN;DENIES CURRENT S/I ) Hx Bipolar Disorder: No Hx Schizophrenia: No - Patient Surgical History Past Surgical History: Yes Hx Neurologic Surgery: No Hx Cataract Extraction: No Hx Cardiac Surgery: No Hx Lung Surgery: No Hx Breast Surgery: No Hx Breast Biopsy: No Hx Abdominal Surgery: Yes (UMBILICAL HERNIA REPAIR IN 2009) Hx Appendectomy: No Hx Cholecystectomy: No Hx Genitourinary Surgery: No Hx Section: No Hx Orthopedic Surgery: No Hx Hysterectomy: No Other Surgical History: D&C IN 1979 AND 1983 Anesthesia Reaction: No - PPD History Previous Implant?: Yes Documented Results: Negative w/o proof Implanted On Prior [facility] Admission?: Yes Date: 12/27/15 Results: 0 mm PPD to be Administered?: Yes - Reproductive History Patient is a Female of Child Bearing Age (11 -55 yrs old): Yes Last Menstrual Period: 01/22/16 Patient : No - Smoking Cessation Smoking history: Current every day smoker Have you smoked in the past 12 months: Yes Aproximately how many cigarettes per day: 5 Cigars Per Day: 0 Hx Chewing Tobacco Use: No Initiated information on smoking cessation: Yes 'Breaking Loose' booklet given: 08/04/17 - Substance & Tx. History Hx Alcohol Use: Yes (VODKA) Hx Substance Use: Yes (COCAINE) Substance Use Type: Alcohol, Cocaine Hx Substance Use Treatment: Yes (LAST TX AT [facility]) - Substances Abused Alcohol Route: Oral Frequency: Daily Amount used: 1 pint vodka and up Age of first use: 10 Date of Last Use: 08/03/17 Cocaine Route: Inhalation Frequency: Daily Amount used: $60 Age of first use: 16 Date of Last Use: 08/03/17 Family Disease History - Family Disease History Family Disease History: Heart Disease: Father (, [place]), [place]: Mother ( ), Other: Father, Mother, Brother (no contact), Sister (healthy), Son ( healthy), Daughter (no contact) Admission Physical Exam BHS - Vital Signs Vital Signs: Vital Signs - 24 hr 08/04/17 12:11 Temperature 97.4 F L Pulse Rate 77 Respiratory 20 Rate Blood Pressure 144/97 - Physical General Appearance: Yes: Moderate Distress, Irritable, Anxious HEENTM: Yes: EOMI, Normocephalic, ANGI, Nasal Congestion, Rhinorrhea Respiratory: Yes: Chest Non-Tender, Lungs Clear, Normal Breath Sounds, No Respiratory Distress Neck: Yes: No masses,lesions,Nodules, Supple, Trachea in good position Breast: Yes: Breast Exam Deferred Cardiology: Yes: Regular Rhythm, Regular Rate, S1, S2 Abdominal: Yes: Normal Bowel Sounds, Non Tender, Flat, Soft Genitourinary: Yes: Other (N/C) Musculoskeletal: Yes: full range of Motion, Gait Steady Extremities: Yes: Normal Range of Motion, Non-Tender Neurological: Yes: bar assistant II-XII NML intact, Fully Oriented, Alert, Motor Strength 5/5 Integumentary: Yes: Dry, Warm Lymphatic: Yes: Within Normal Limits - Diagnostic (1) Alcohol dependence with uncomplicated withdrawal Current Visit: Yes Status: Acute (2) Insomnia Current Visit: Yes Status: Chronic Qualifiers: Insomnia type: unspecified Qualified Code(s): G47.00 - Insomnia, unspecified (3) Nicotine dependence Current Visit: Yes Status: Acute Qualifiers: Nicotine product type: cigarettes Substance use status: in withdrawal Qualified Code(s): F17.213 - Nicotine dependence, cigarettes, with withdrawal (4) Arthritis Current Visit: Yes Status: Chronic (5) Asthma Current Visit: Yes Status: Chronic (6) Cocaine dependence, uncomplicated Current Visit: Yes Status: Acute (7) HIV (human immunodeficiency virus infection) Current Visit: Yes Status: Chronic (8) Hidradenitis suppurativa of left axilla Current Visit: Yes Status: Acute Cleared for Admission [facility] - Detox or Rehab [facility] Level of Care: Medically Managed Detox Regimen/Protocol: Librium [facility] Breath Alcohol Content Breath Alcohol Content: 0 Urine Pregancy Test - Result Urine Test Results: Negative- NO Line Present Urine Drug Screen - Results Drug Screen Negative: Yes Urine Drug Screen Results: JERRI-Cocaine
[2017-08-04] MEDS ORDERED: guaiFENesin/D-METHORPHAN HB 10 ML UNIT-DOSE CUPS PO PRN (15:06)
[2017-08-04] MEDS ORDERED: MAGNESIUM CITRATE 300 ML BOTTLE PO PRN (15:06)
[2017-08-04] MEDS ORDERED: P-EPHED 60MG/TRIPROLIDI 2.5MG TABLET PO PRN (15:06)
[2017-08-04] MEDS ORDERED: NICOTINE POLACRILEX 2 MG GUM BUC PRN (15:06)
[2017-08-04] MEDS ORDERED: LOPERAMIDE HCL 2 MG CAPSULE PO PRN (15:06)
[2017-08-04] MEDS ORDERED: hydrOXYzine PAMOATE 50 MG CAPSULE (FP) PO PRN (15:06)
[2017-08-04] MEDS ORDERED: MAG HYDROX/AL HYDROX/SIMETH 30 ML UNIT-DOSE CUP PO PRN (15:06)
[2017-08-04] MEDS ORDERED: MENTHOL/PHENOL 1 EACH UD MM PRN (15:06)
[2017-08-04] MEDS ORDERED: IBUPROFEN 400 MG TABLET (FP) PO PRN (15:06)
[2017-08-04] MEDS ORDERED: MAGNESIUM HYDROX 2400MG/30ML ORAL SUSPENSION 30 ML CUP PO PRN (15:06)
[2017-08-04] MEDS ORDERED: chlordiazePOXIDE HCL 25 MG CAPSULE PO PRN (15:06)
[2017-08-04] MEDS ORDERED: ALBUTEROL SO4 18 GM HFA INHALER IH PRN (15:08)
[2017-08-04] MEDS ORDERED: chlordiazePOXIDE HCL 25 MG CAPSULE PO ONE (15:15)
--- NOTE | 2017-08-04 15:40 | CONSULT ---
[facility] Psychiatric Consult - Data Date of interview: 08/04/17 Admission source: [facility] Identifying data: This is 52 years old female, singlr mother of two, living alone , on SSI, with psychiatric hospitalization history, with history of MDD, Bipolar Disorder, is here for detox, reports Alcohol, Cocaine, Nicotine dependence, reports withdrawal symptoms. Substance Abuse History: Smoking history: Current every day smoker. Have you smoked in the past 12 months: Yes. Aproximately how many cigarettes per day: 5. Cigars Per Day: 0. Hx Chewing Tobacco Use: No. Initiated information on smoking cessation: Yes. 'Breaking Loose' booklet given: 08/04/17. - Substance & Tx. History. Hx Alcohol Use: Yes (VODKA). Hx Substance Use: Yes (COCAINE). Substance Use Type: Alcohol, Cocaine. Hx Substance Use Treatment: Yes (LAST TX AT [facility]). - Substances Abused. Alcohol. Route: Oral. Frequency: Daily. Amount used: 1 pint vodka and up. Age of first use: 10. Date of Last Use: . Cocaine. Route: Inhalation. Frequency: Daily. Amount used: $60. Age of first use: 16. Date of Last Use: 08/03/17 Medical History: Asthma, HIV+ Psychiatric History: Patient rep[orts history of depression, insomnia, reports suicidal attempt by OD at age [age] years old after Mother's . Denies suicidal history since then. Patient reports taking prior to admission Seroquel 300mg po qhs for a long time. As per computer has a history of MDD, Bipolar Disorder.Reports omly psychiatric admission on mpore then 10 years ago for safety Physical/Sexual Abuse/Trauma History: Denies Additional Comment: Seroquel 300mg po qhs Mental Status Exam - Mental Status Exam Alert and Oriented to: Person Cognitive Function: Fair Patient Appearance: Well Groomed Mood: Anxious Affect: Mood Congruent Patient Behavior: Talkative Speech Pattern: Appropriate Voice Loudness: Normal Thought Process: Goal Oriented Thought Disorder: Being Controlled Hallucinations: Denies Suicidal Ideation: Denies Homicidal Ideation: Denies Insight/Judgement: Fair Sleep: Difficulty falling asleep Appetite: Fair Muscle strength/Tone: Normal Gait/Station: Normal Additional Comments: Seroquel 300mg po qhs Psychiatric Findings - Problem List ([place] 1, 2,3) (1) Alcohol dependence with uncomplicated withdrawal Current Visit: Yes Status: Acute (2) Cocaine dependence, uncomplicated Current Visit: Yes Status: Acute (3) Nicotine dependence Current Visit: Yes Status: Acute Qualifiers: Nicotine product type: cigarettes Substance use status: in withdrawal Qualified Code(s): F17.213 - Nicotine dependence, cigarettes, with withdrawal (4) Arthritis Current Visit: Yes Status: Chronic (5) Asthma Current Visit: Yes Status: Chronic (6) HIV (human immunodeficiency virus infection) Current Visit: Yes Status: Chronic (7) Substance induced mood disorder Current Visit: No Status: Acute (8) Bipolar disorder Current Visit: No Status: Chronic Comment: As per self-report.Chronically non-adherent to OPD care + medications.Currently asymptomatic.On seroquel. (9) Cannabis dependence Current Visit: No Status: Chronic (10) Major depressive disorder, recurrent episode, severe, with psychotic behavior Current Visit: No Status: Chronic (11) PCP (phencyclidine) abuse Current Visit: No Status: Chronic - Initial Treatment Plan Initial Treatment Plan: Seroquel 300mg po qhs
[2017-08-04] MEDS: NICOTINE 14 MG/24 HOURS TOPICAL PATCH TD SCH (15:57)
[2017-08-04] MEDS: amLODIPine BESYLATE 10 MG TABLET (FP) PO SCH (17:49)
[2017-08-04] MEDS: chlordiazePOXIDE HCL 25 MG CAPSULE PO SCH ×2 (18:00→22:20)
[2017-08-04 18:11] LABS: URINE APPEARANCE CLEAR; URINE BILIRUBIN NEGATIVE (<2.0 mg/dL); URINE COLOR YELLOW; URINE GLUCOSE (UA) NEGATIVE (NEGATIVE); URINE KETONE NEGATIVE (NEGATIVE); URINE LEUK ESTERASE NEGATIVE (NEGATIVE); URINE NITRITE NEGATIVE (NEGATIVE); URINE PROTEIN NEGATIVE (NEGATIVE)
[2017-08-04] MEDS ORDERED: MELATONIN 5 MG TABLETS PO PRN (22:00)
[2017-08-04] MEDS: THIAMINE HCL 100 MG TABLET (FP) PO SCH (22:19)
[2017-08-04] MEDS: QUEtiapine FUMARATE 300 MG TABLET PO SCH (22:20)
[2017-08-05] MEDS: chlordiazePOXIDE HCL 25 MG CAPSULE PO SCH ×4 (05:00→22:15)
--- NOTE | 2017-08-05 09:49 | EKG ---
Test Reason : Blood Pressure : / mmHG Vent. Rate : 068 BPM Atrial Rate : 068 BPM P-R Int : 146 ms QRS Dur : 138 ms QT Int : 472 ms P-R-T Axes : 071 075 065 degrees QTc Int : 501 ms NORMAL SINUS RHYTHM POSSIBLE LEFT ATRIAL ENLARGEMENT RIGHT BUNDLE BRANCH BLOCK ABNORMAL ECG WHEN COMPARED WITH ECG OF 18-MAR-2017 19:03, NO SIGNIFICANT CHANGE WAS FOUND Confirmed by ESTEPHANIA ARENAS MD ([id number]) on 08/05/2017 9:49:03 AM Referred By: Confirmed By:ESTEPHANIA ARENAS MD
[2017-08-05 09:58] LABS: HEMATOCRIT 32.9 % (32.4-45.2); HEMOGLOBIN 10.7 GM/dL (10.7-15.3); MCH 28.2 pg (25.7-33.7); MCHC 32.4 g/dl (32.0-36.0); MEAN CELL VOLUME 86.8 fl (80-96); MEAN PLT VOLUME 8.2 fl (7.5-11.1); PLATELET COUNT 355 K/MM3 (134-434); RBC 3.78 M/mm3 (3.60-5.2); RDW 16.7 % (11.6-15.6); WHITE BLOOD COUNT 6.1 K/mm3 (4.0-10.0)
[2017-08-05] MEDS ORDERED: amLODIPine BESYLATE 5 MG TABLET (FP) PO SCH (10:00)
[2017-08-05 10:02] LABS: CHLORIDE 104 mmol/L (98-107); POTASSIUM 3.8 mmol/L (3.5-5.1); SODIUM 138 mmol/L (136-145)
[2017-08-05] MEDS: DOLUTEGRAVIR SODIUM 50 MG TABLET PO SCH (10:45)
[2017-08-05] MEDS: EMTRICITABINE 200MG/TENOFOVIR 300MG PO SCH (10:45)
[2017-08-05 10:49] LABS: ALBUMIN 3.8 g/dl (3.4-5.0); ALK PHOS 89 U/L (45-117); ANION GAP 10 (8-16); BILIRUBIN,TOTAL 0.3 mg/dL (0.2-1.0); BLOOD UREA NITROGEN 24 mg/dL (7-18); CALCIUM 8.6 mg/dL (8.5-10.1); CO2 24 mmol/L (21-32); CREATININE 1.1 mg/dL (0.55-1.02); GLUCOSE,RANDOM 102 mg/dL (74-106); SGOT/AST 21 U/L (15-37); SGPT/ALT 23 U/L (12-78); TOT PROT 8.7 g/dl (6.4-8.2)
[2017-08-05] MEDS: PRENATAL VITAMINS W/ FOLIC ACID TABLET (FP) PO SCH (11:03)
[2017-08-05] MEDS: amLODIPine BESYLATE 10 MG TABLET (FP) PO SCH (11:03)
[2017-08-05] MEDS: NICOTINE 14 MG/24 HOURS TOPICAL PATCH TD SCH (11:05)
--- NOTE | 2017-08-05 13:51 | PN ---
BHS Progress Note (SOAP) Subjective: pt in bed without complaints Objective: 08/05/17 13:47 Laboratory Tests 08/04/17 08/05/17 08/05/17 15:40 06:00 06:00 WBC 6.1 RBC 3.78 Hgb 10.7 Hct 32.9 MCV 86.8 MCH 28.2 MCHC 32.4 RDW 16.7 H Plt Count 355 D MPV 8.2 Sodium 138 Potassium 3.8 Chloride 104 Carbon Dioxide 24 Anion Gap 10 BUN 24 H Creatinine 1.1 H Creat Clearance w eGFR 51.76 Random Glucose 102 Calcium 8.6 Total Bilirubin 0.3 D AST 21 ALT 23 Alkaline Phosphatase 89 Total Protein 8.7 H Albumin 3.8 Urine Color Yellow Urine Appearance Clear Urine pH 5.0 D Ur Specific [place] 1.030 Urine Protein Negative Urine Glucose (UA) Negative Urine Ketones Negative Urine Blood Negative Urine Nitrite Negative Urine Bilirubin Negative Urine Urobilinogen 2.0 H Ur Leukocyte Esterase Negative RPR Titer 08/05/17 06:00 WBC RBC Hgb Hct MCV MCH MCHC RDW Plt Count MPV Sodium Potassium Chloride Carbon Dioxide Anion Gap BUN Creatinine Creat Clearance w eGFR Random Glucose Calcium Total Bilirubin AST ALT Alkaline Phosphatase Total Protein Albumin Urine Color Urine Appearance Urine pH Ur Specific Drifting Urine Protein Urine Glucose (UA) Urine Ketones Urine Blood Urine Nitrite Urine Bilirubin Urine Urobilinogen Ur Leukocyte Esterase RPR Titer Nonreactive mildly decreased GFR mild anemia Current Active Problems Alcohol dependence with uncomplicated withdrawal (Acute) Cocaine dependence, uncomplicated (Acute) Hidradenitis suppurativa of left axilla (Acute) Nicotine dependence (Acute) Arthritis (Chronic) Asthma (Chronic) HIV (human immunodeficiency virus infection) (Chronic) Insomnia (Chronic) Vital Signs - 24 hr 08/04/17 08/04/17 08/04/17 15:54 17:30 21:50 Temperature 97.5 F L 98.1 F 98.1 F Pulse Rate 86 88 90 Respiratory 18 18 18 Rate Blood Pressure 160/99 149/101 139/89 08/05/17 08/05/17 08/05/17 00:30 03:30 07:29 Temperature 97.7 F Pulse Rate 80 Respiratory 20 20 20 Rate Blood Pressure 126/70 08/05/17 09:31 Temperature 97.7 F Pulse Rate 79 Respiratory 18 Rate Blood Pressure 121/82 Assessment: 08/05/17 13:49 Pt with HIV, admitted for alcohol use disorder- on detox protocol Plan: continue alcohol detox protocol, HIV medications-
[2017-08-05] MEDS: THIAMINE HCL 100 MG TABLET (FP) PO SCH (22:15)
[2017-08-05] MEDS: QUEtiapine FUMARATE 300 MG TABLET PO SCH (22:15)
[2017-08-06] MEDS: ACETAMINOPHEN 325 MG TABLET (FP) PO PRN ×3 (00:57→22:43)
[2017-08-06] MEDS: chlordiazePOXIDE HCL 25 MG CAPSULE PO SCH ×2 (05:54→10:55)
[2017-08-06] MEDS: EMTRICITABINE 200MG/TENOFOVIR 300MG PO SCH (10:53)
[2017-08-06] MEDS: DOLUTEGRAVIR SODIUM 50 MG TABLET PO SCH (10:54)
[2017-08-06] MEDS: NICOTINE 14 MG/24 HOURS TOPICAL PATCH TD SCH (10:54)
[2017-08-06] MEDS: amLODIPine BESYLATE 10 MG TABLET (FP) PO SCH (10:54)
[2017-08-06] MEDS: PRENATAL VITAMINS W/ FOLIC ACID TABLET (FP) PO SCH (10:54)
[2017-08-06] MEDS ORDERED: IBUPROFEN 600 MG TABLET (FP) PO PRN (13:09)
--- NOTE | 2017-08-06 13:18 | PN ---
S CIWA - CIWA Score Nausea/Vomitin Muscle Tremors: 3 Anxiety: 3 Agitation: 3 Paroxysmal Sweats: 2 Orientation: 0-Oriented Tacttile Disturbances: 0-None Auditory Disturbances: 0-None Visual Disturbances: 0-None Headache: 0-None Present CIWA-Ar Total Score: 13 BHS Progress Note (SOAP) Subjective: Sleep disturbance Sweats Shakes Toothache Objective: 08/06/17 13:16 A & O x 3 Tooth decay Vital Signs Temperature 98.8 F 08/06/17 10:08 Pulse Rate 89 08/06/17 10:08 Respiratory Rate 18 08/06/17 10:08 Blood Pressure 144/97 08/06/17 10:08 O2 Sat by Pulse Oximetry (%) Assessment: 08/06/17 13:17 withdrawal sx Tooth decay Plan: continue detox continue antiretrovirals Motrin 600mg prn for toothache Increase hydration
[2017-08-06] MEDS ORDERED: BACITRACIN 0.9 GM PACKET ONE ×2 (14:11→21:12)
[2017-08-06] MEDS: BACITRACIN 0.9 GM PACKET TP SCH ×2 (14:14→22:20)
[2017-08-06] MEDS: chlordiazePOXIDE 5 MG CAPSULE PO SCH ×2 (17:53→22:21)
[2017-08-06] MEDS: IBUPROFEN 600 MG TABLET (FP) PO PRN (17:53)
[2017-08-06] MEDS: QUEtiapine FUMARATE 300 MG TABLET PO SCH (22:21)
[2017-08-06] MEDS: THIAMINE HCL 100 MG TABLET (FP) PO SCH (22:21)
[2017-08-07] MEDS: chlordiazePOXIDE 5 MG CAPSULE PO SCH ×2 (07:03→10:26)
[2017-08-07] MEDS: IBUPROFEN 600 MG TABLET (FP) PO PRN ×2 (07:54→17:42)
[2017-08-07] MEDS: BACITRACIN 0.9 GM PACKET TP SCH ×2 (10:20→22:37)
[2017-08-07] MEDS: PRENATAL VITAMINS W/ FOLIC ACID TABLET (FP) PO SCH (10:25)
[2017-08-07] MEDS: amLODIPine BESYLATE 10 MG TABLET (FP) PO SCH (10:25)
[2017-08-07] MEDS: NICOTINE 14 MG/24 HOURS TOPICAL PATCH TD SCH (10:26)
[2017-08-07] MEDS: DOLUTEGRAVIR SODIUM 50 MG TABLET PO SCH (10:26)
[2017-08-07] MEDS: EMTRICITABINE 200MG/TENOFOVIR 300MG PO SCH (10:26)
--- NOTE | 2017-08-07 10:59 | PN ---
BHS Progress Note (SOAP) Subjective: FEELING BETTER NO TREMOR LESS SWEAT Objective: 08/07/17 10:55 Vital Signs Temperature 97.7 F 08/07/17 09:34 Pulse Rate 115 H 08/07/17 09:34 Respiratory Rate 18 08/07/17 09:34 Blood Pressure 121/83 08/07/17 09:34 O2 Sat by Pulse Oximetry (%) Laboratory Last Values WBC 6.1 K/mm3 (4.0-10.0) 08/05/17 06:00 RBC 3.78 M/mm3 (3.60-5.2) 08/05/17 06:00 Hgb 10.7 GM/dL (10.7-15.3) 08/05/17 06:00 Hct 32.9 % (32.4-45.2) 08/05/17 06:00 MCV 86.8 fl (80-96) 08/05/17 06:00 MCH 28.2 pg (25.7-33.7) 08/05/17 06:00 MCHC 32.4 g/dl (32.0-36.0) 08/05/17 06:00 RDW 16.7 % (11.6-15.6) H 08/05/17 06:00 Plt Count 355 K/MM3 (134-434) D 08/05/17 06:00 MPV 8.2 fl (7.5-11.1) 08/05/17 06:00 Sodium 138 mmol/L (136-145) 08/05/17 06:00 Potassium 3.8 mmol/L (3.5-5.1) 08/05/17 06:00 Chloride 104 mmol/L (98-107) 08/05/17 06:00 Carbon Dioxide 24 mmol/L (21-32) 08/05/17 06:00 Anion Gap 10 (8-16) 08/05/17 06:00 BUN 24 mg/dL (7-18) H 08/05/17 06:00 Creatinine 1.1 mg/dL (0.55-1.02) H 08/05/17 06:00 Creat Clearance w eGFR 51.76 (>60) 08/05/17 06:00 Random Glucose 102 mg/dL (74-106) 08/05/17 06:00 Calcium 8.6 mg/dL (8.5-10.1) 08/05/17 06:00 Total Bilirubin 0.3 mg/dL (0.2-1.0) D 08/05/17 06:00 AST 21 U/L (15-37) 08/05/17 06:00 ALT 23 U/L (12-78) 08/05/17 06:00 Alkaline Phosphatase 89 U/L (45-117) 08/05/17 06:00 Total Protein 8.7 g/dl (6.4-8.2) H 08/05/17 06:00 Albumin 3.8 g/dl (3.4-5.0) 08/05/17 06:00 Urine Color Yellow 08/04/17 15:40 Urine Appearance Clear 08/04/17 15:40 Urine pH 5.0 (5.0-8.0) D 08/04/17 15:40 Ur Specific [place] 1.030 (1.001-1.035) 08/04/17 15:40 Urine Protein Negative (NEGATIVE) 08/04/17 15:40 Urine Glucose (UA) Negative (NEGATIVE) 08/04/17 15:40 Urine Ketones Negative (NEGATIVE) 08/04/17 15:40 Urine Blood Negative (NEGATIVE) 08/04/17 15:40 Urine Nitrite Negative (NEGATIVE) 08/04/17 15:40 Urine Bilirubin Negative (<2.0 mg/dL) 08/04/17 15:40 Urine Urobilinogen 2.0 mg/dL (0.2-1.0) H 08/04/17 15:40 Ur Leukocyte Esterase Negative (NEGATIVE) 08/04/17 15:40 RPR Titer Nonreactive (NONREACTIVE) 08/05/17 06:00 LAB NOTED RENAL INSUFFICIENT Assessment: 08/07/17 10:58 MILD WITHDRAWAL SX RENAL DEFICIENCY Plan: MEDICALLY SUPERVISED DETOX HEALTH TEACHING ON ALCOHOL RELATED HEALTH ISSUES
[2017-08-07] MEDS: ACETAMINOPHEN 325 MG TABLET (FP) PO PRN ×2 (14:41→22:38)
[2017-08-07] MEDS: chlordiazePOXIDE HCL 10 MG CAPSULE PO SCH ×2 (17:40→22:37)
--- NOTE | 2017-08-07 18:54 | PN ---
BHS Progress Note Note: pt refused her librium dose
[2017-08-07] MEDS: QUEtiapine FUMARATE 300 MG TABLET PO SCH (22:37)
[2017-08-07] MEDS: THIAMINE HCL 100 MG TABLET (FP) PO SCH (22:37)
[2017-08-08] MEDS: chlordiazePOXIDE HCL 10 MG CAPSULE PO SCH (05:12)
[2017-08-08] MEDS: IBUPROFEN 600 MG TABLET (FP) PO PRN (05:19)
--- NOTE | 2017-08-08 08:55 | DS ---
[facility] Detox Discharge Summary Admission Date: 08/04/17 Discharge Date: 08/08/17 - History Present History: Alcohol Dependence Additional Comments: 52 years old female admitted 08/04/17 for alcohol withdrawal sx completed alcohol detox regimen tolerated well denies alcohol withdrawal sx alert oriented x 3 no acute distress aftercare [facility] recommend nephrology follow up and remain sober from alcohol - Physical Exam Results Vital Signs: Vital Signs Temperature 96.6 F L 08/08/17 06:44 Pulse Rate 95 H 08/08/17 06:44 Respiratory Rate 20 08/08/17 06:44 Blood Pressure 109/71 08/08/17 06:44 O2 Sat by Pulse Oximetry (%) Pertinent Admission Physical Exam Findings: alcohol withdrawal sx Vital Signs Temperature 96.6 F L 08/08/17 06:44 Pulse Rate 95 H 08/08/17 06:44 Respiratory Rate 20 08/08/17 06:44 Blood Pressure 109/71 08/08/17 06:44 O2 Sat by Pulse Oximetry (%) Laboratory Last Values WBC 6.1 K/mm3 (4.0-10.0) 08/05/17 06:00 RBC 3.78 M/mm3 (3.60-5.2) 08/05/17 06:00 Hgb 10.7 GM/dL (10.7-15.3) 08/05/17 06:00 Hct 32.9 % (32.4-45.2) 08/05/17 06:00 MCV 86.8 fl (80-96) 08/05/17 06:00 MCH 28.2 pg (25.7-33.7) 08/05/17 06:00 MCHC 32.4 g/dl (32.0-36.0) 08/05/17 06:00 RDW 16.7 % (11.6-15.6) H 08/05/17 06:00 Plt Count 355 K/MM3 (134-434) D 08/05/17 06:00 MPV 8.2 fl (7.5-11.1) 08/05/17 06:00 Sodium 138 mmol/L (136-145) 08/05/17 06:00 Potassium 3.8 mmol/L (3.5-5.1) 08/05/17 06:00 Chloride 104 mmol/L (98-107) 08/05/17 06:00 Carbon Dioxide 24 mmol/L (21-32) 08/05/17 06:00 Anion Gap 10 (8-16) 08/05/17 06:00 BUN 24 mg/dL (7-18) H 08/05/17 06:00 Creatinine 1.1 mg/dL (0.55-1.02) H 08/05/17 06:00 Creat Clearance w eGFR 51.76 (>60) 08/05/17 06:00 Random Glucose 102 mg/dL (74-106) 08/05/17 06:00 Calcium 8.6 mg/dL (8.5-10.1) 08/05/17 06:00 Total Bilirubin 0.3 mg/dL (0.2-1.0) D 08/05/17 06:00 AST 21 U/L (15-37) 08/05/17 06:00 ALT 23 U/L (12-78) 08/05/17 06:00 Alkaline Phosphatase 89 U/L (45-117) 08/05/17 06:00 Total Protein 8.7 g/dl (6.4-8.2) H 08/05/17 06:00 Albumin 3.8 g/dl (3.4-5.0) 08/05/17 06:00 Urine Color Yellow 08/04/17 15:40 Urine Appearance Clear 08/04/17 15:40 Urine pH 5.0 (5.0-8.0) D 08/04/17 15:40 Ur Specific [place] 1.030 (1.001-1.035) 08/04/17 15:40 Urine Protein Negative (NEGATIVE) 08/04/17 15:40 Urine Glucose (UA) Negative (NEGATIVE) 08/04/17 15:40 Urine Ketones Negative (NEGATIVE) 08/04/17 15:40 Urine Blood Negative (NEGATIVE) 08/04/17 15:40 Urine Nitrite Negative (NEGATIVE) 08/04/17 15:40 Urine Bilirubin Negative (<2.0 mg/dL) 08/04/17 15:40 Urine Urobilinogen 2.0 mg/dL (0.2-1.0) H 08/04/17 15:40 Ur Leukocyte Esterase Negative (NEGATIVE) 08/04/17 15:40 RPR Titer Nonreactive (NONREACTIVE) 08/05/17 06:00 lab noted health teaching on alcohol related renal problems - Treatment Hospital Course: Detox Protocol Followed, Detoxed Safely, Responded well, Discharged Condition Good, Rehab Referral Accepted Patient has Accepted a Rehab Referral to: [facility] - Medication Discharge Medications: Ambulatory Orders Dolutegravir Sodium [Tivicay] 50 mg PO DAILY 09/04/16 Emtricitabine/Tenofovir (Tdf) [Truvada 200 mg-300 mg Tablet] 1 each PO DAILY Quetiapine Fumarate [Seroquel -] 300 mg PO HS #30 tablet 03/22/17 Albuterol Sulfate Inhaler - [Ventolin HFA Inhaler -] 2 inh PO Q4H PRN #1 inhaler 08/07/17 Amlodipine Besylate [Norvasc -] 10 mg PO DAILY #30 tablet 08/07/17 - Diagnosis (1) Alcohol dependence with uncomplicated withdrawal Current Visit: Yes Status: Acute (2) Nicotine dependence Current Visit: Yes Status: Acute Qualifiers: Nicotine product type: cigarettes Substance use status: in withdrawal Qualified Code(s): F17.213 - Nicotine dependence, cigarettes, with withdrawal (3) Asthma Current Visit: Yes Status: Chronic (4) HIV (human immunodeficiency virus infection) Current Visit: Yes Status: Chronic (5) Bipolar II disorder Current Visit: No Status: Suspected - AMA Did Patient Leave Against Medical Advice: No
[2017-08-08] MEDS ORDERED: BACITRACIN 0.9 GM PACKET ONE (09:14)
[2017-08-08 09:16] VITALS: BP 120/80; PULSE 101; TEMP 97.7
== END 2017-08-08 10:10 | disposition home or self-care (01) | DRG 774 ==
LOC: YASAS 11:49 → Y6N 15:11
PROVIDERS: ADMIT Family Medicine Addiction Medicine; ATTEND Family Medicine Addiction Medicine
PROC: HZ2ZZZZ Detoxification Services for Substance Abuse Treatment (ICD-10-PCS; principal; 2017-08-04)
DX: F10.230 Alcohol dependence with withdrawal, uncomplicated (principal); F14.20 Cocaine dependence, uncomplicated; F17.213 Nicotine dependence, cigarettes, with withdrawal; F19.24 Other psychoactive substance dependence with psychoactive substance-induced mood disorder; F33.3 Major depressive disorder, recurrent, severe with psychotic symptoms; F31.81 Bipolar II disorder; Z21 Asymptomatic human immunodeficiency virus [HIV] infection status; J45.909 Unspecified asthma, uncomplicated; N28.9 Disorder of kidney and ureter, unspecified; L73.2 Hidradenitis suppurativa; M19.90 Unspecified osteoarthritis, unspecified site; G47.00 Insomnia, unspecified; I10 Essential (primary) hypertension; Z87.42 Personal history of other diseases of the female genital tract; Z91.5 Personal history of self-harm
CPT/HCPCS: 36415; 80053; 81003; 85027; 86593; 93005; 93010

== ENCOUNTER 2019-03-19 10:57 | Inpatient (IN) | payer OTHER ==
[2019-03-19 13:42] VITALS: BMI 32.4
--- NOTE | 2019-03-19 14:38 | HP ---
<Darshan Augustine - Last Filed: 03/19/19 15:40> CIWA Score Nausea/Vomitin-No Nausea/No Vomiting Muscle Tremors: None Anxiety: 0-No Anxiety, at Ease Agitation: 0-Normal Activity Paroxysmal Sweats: No Perspiration Orientation: 0-Oriented Tacttile Disturbances: 0-None Auditory Disturbances: 0-None Visual Disturbances: 0-None Headache: 0-None Present CIWA-Ar Total Score: 0 - Admission Criteria OASAS Guidelines: Admission for Medically Managed Detox: Requires at least one of the followin. CIWA greater than 12 2. Seizures within the past 24 hours 3. Delirium tremens within the past 24 hours 4. Hallucinations within the past 24 hours 5. Acute intervention needed for co occurring medical disorder 6. Acute intervention needed for co occurring psychiatric disorder 7. Severe withdrawal that cannot be handled at a lower level of care (continued vomiting, continued diarrhea, abnormal vital signs) requiring intravenous medication and/or fluids 8. Admitting History and Physical - Primary Care Physician PCP: Dr. Sumi M[facility] - Admission Chief Complaint: alcohol detox History of Present Illness: PCP: Dr. Sumi Mendez [address] Pt seeking detox for alcohol. Last drink Sat night. Has never withdrawn from EtOH. Used Suboxone Sat night and became nauseated with vomiting and sweating. Has not had any symptoms of withdrawal since then. No anxiety, tremors, nausea, vomiting, diarrhea, sweats, chills. Started drinking age 9. Cocaine: last use Sat. Started at age 14 on and off over the years. Marijuana: last use Sat. Had been abusing oxycontin following a knee replacement in 05/2018 and has been started on Suboxone. Last week had a cold. Mild blood when blowing her nose. No other bleeding. No dark/bloody stools. PMH: Asthma, HIV (viral load: 290, CD4 count: unknown) Psychiatric: Depression PSH: R TKR, hernia repair Meds: was on Truvada but stopped. Trimex, albuterol, ibuprofen, Seroquel Allergies: none Soc: lives alone in an apt. not sexually active. 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 Cardiovascular: Yes: HTN Pulmonary: Yes: Asthma Gastrointestinal: No: Constipation, GI Bleed Renal/: No: Renal Failure ...LMP: 01/22/16 ...: No ...: 5 ...Para: 2 Heme/Onc: No: Anemia Infectious Disease: Yes: HIV (last viral load 290) Psych: Yes: Addictions, Depression ENT: No: Allergic Rhinitis - Past Surgical History Past Surgical History: Yes: Joint Replacement - Smoking History Smoking history: Current every day smoker Have you smoked in the past 12 months: Yes Aproximately how many cigarettes per day: 3 - Alcohol/Substance Use Hx Alcohol Use: Yes (VODKA) - Social History Usual Living Arrangement: Yes: Alone History of Recent Travel: No Admission ROS S - HPI Allergies/Adverse Reactions: Allergies Allergy/AdvReac Type Severity Reaction Status Date / Time No Known Allergies Allergy Verified 03/19/19 13:35 - Ebola screening Have you traveled outside of the country in the last 21 days: No Have you had contact with anyone from an Ebola affected area: No Do you have a fever: No - Review of Systems Constitutional: Malaise EENT: reports: No Symptoms Reported Respiratory: reports: No Symptoms reported. denies: Cough Cardiac: reports: No Symptoms Reported. denies: Chest Pain GI: reports: No Symptoms Reported. denies: Abdominal Distended, Constipated, Diarrhea : reports: No Symptoms Reported. denies: Burning, Dysuria, Discharge Musculoskeletal: reports: No Symptoms Reported Integumentary: reports: No Symptoms Reported Neuro: reports: No Symptoms reported. denies: Headache, Numbness, Paresthesia Endocrine: reports: No Symptoms Reported Patient History - Patient Medical History Hx Anemia: Yes Hx Asthma: Yes (MDI) Hx Chronic Obstructive Pulmonary Disease (COPD): No Hx Cancer: No Hx Cardiac Disorders: No Hx Congestive Heart Failure: No Hx Hypertension: Yes (ELEVATED ON ADMISSION-NO MED 155/103) Hx Hypercholesterolemia: No Hx Pacemaker: No HX Cerebrovascular Accident: No Hx Seizures: No Hx Dementia: No Hx Diabetes: No Hx Gastrointestinal Disorders: No Hx Liver Disease: No Hx Genitourinary Disorders: No Hx Sexually Transmitted Disorders: Yes (TREATED FOR SYPHILIS) Hx Renal Disease (ESRD): No Hx Thyroid Disease: No Hx Human Immunodeficiency Virus (HIV): Yes (DX: 05/2016-UNDETECTABLE NOW. TIVICAY ) Hx Hepatitis C: No Hx Depression: Yes (ON SEROQUEL) Hx Suicide Attempt: Yes (AT 9 Y/O TOOK ASPIRIN;DENIES CURRENT S/I ) Hx Bipolar Disorder: No Hx Schizophrenia: No - Patient Surgical History Past Surgical History: Yes Hx Neurologic Surgery: No Hx Cataract Extraction: No Hx Cardiac Surgery: No Hx Lung Surgery: No Hx Breast Surgery: No Hx Breast Biopsy: No Hx Abdominal Surgery: Yes (UMBILICAL HERNIA REPAIR IN 2009) Hx Appendectomy: No Hx Cholecystectomy: No Hx Genitourinary Surgery: No Hx Section: No Hx Orthopedic Surgery: Yes ([facility] KNEE REPLACEMENT 2019) Hx Hysterectomy: No Other Surgical History: D&C IN 1979 AND 1983 Anesthesia Reaction: No - PPD History Previous Implant?: Yes Documented Results: Negative w/proof Date: 12/27/15 Results: 0 mm - Reproductive History Last Menstrual Period: 01/22/16 - Smoking Cessation Smoking history: Current every day smoker Have you smoked in the past 12 months: Yes Aproximately how many cigarettes per day: 3 Cigars Per Day: 0 Hx Chewing Tobacco Use: No Initiated information on smoking cessation: Yes - Substances abused Alcohol Substance route: Oral Frequency: Daily Amount used: 40 OUNCES OF BEER, 1 PINT OF VODKA Age of first use: 9 Date of last use: 03/17/19 Cocaine Substance route: Inhalation Frequency: 3-6 times per week Amount used: $60 Age of first use: 14 Date of last use: 03/17/19 Admission Physical Exam BHS - Vital Signs Vital Signs: Vital Signs - 24 hr 03/19/19 13:38 Temperature 96.8 F L Pulse Rate 92 H Respiratory 12 Rate Blood Pressure 157/97 - Physical General Appearance: Yes: Within Normal Limits, No Apparent Distress HEENTM: Yes: Within Normal Limits, EOMI, ANGI Respiratory: Yes: Within Normal Limits, Chest Non-Tender, Normal Breath Sounds, No Respiratory Distress Neck: Yes: Within Normal Limits, No masses,lesions,Nodules, Trachea in good position Cardiology: Yes: Within Normal Limits, Regular Rhythm, Regular Rate. No: Systolic Murmur, Gallop/S3, Gallop/S4 Abdominal: Yes: Within Normal Limits, Normal Bowel Sounds, Non Tender, Flat, Soft, Other (obese) Back: Yes: Normal Inspection Musculoskeletal: Yes: Within Normal Limits, Joint Stiffness (R knee) Extremities: Yes: Within Normal Limits, Normal Inspection, Other (2+ pulses). 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, Fully Oriented, Alert, Motor Strength 5/5, Normal Mood/Affect, Normal Response, Other (2+ reflexes) Screened but not Admitted - Documentation of Visit Screened but not Admitted: No Urine Drug Screen - Test Device Lot number: [id number] Expiration date: 09/19/20 - Control Is test valid?: Yes - Results Drug screen NEGATIVE: No Urine drug screen results: JERRI-Cocaine Inpatient Rehab Admission - Rehab Decision to Admit Inpatient rehab admission?: No <Sumi Masters - Last Filed: 03/20/19 11:26> CIWA Score Nausea/Vomitin-Mild Nausea/No Vomiting Muscle Tremors: 3 Anxiety: 2 Agitation: 2 Paroxysmal Sweats: 3 Orientation: 1-Uncertain about Date Tacttile Disturbances: 0-None Auditory Disturbances: 0-None Visual Disturbances: 0-None Headache: 0-None Present CIWA-Ar Total Score: 12 - Admission Criteria OASAS Guidelines: Admission for Medically Managed Detox: Requires at least one of the followin. CIWA greater than 12 2. Seizures within the past 24 hours 3. Delirium tremens within the past 24 hours 4. Hallucinations within the past 24 hours 5. Acute intervention needed for co occurring medical disorder 6. Acute intervention needed for co occurring psychiatric disorder 7. Severe withdrawal that cannot be handled at a lower level of care (continued vomiting, continued diarrhea, abnormal vital signs) requiring intravenous medication and/or fluids 8. Admission Physical Exam S - Vital Signs Vital Signs: Vital Signs - 24 hr 03/19/19 03/19/19 03/19/19 13:38 17:20 21:21 Temperature 96.8 F L 96.7 F L 97.0 F L Pulse Rate 92 H 81 86 Respiratory 12 20 18 Rate Blood Pressure 157/97 155/99 158/99 03/19/19 03/20/19 03/20/19 23:25 00:30 03:30 Temperature Pulse Rate 88 Respiratory 18 20 18 Rate Blood Pressure 109/67 03/20/19 03/20/19 07:29 09:10 Temperature 97.2 F L 96.1 F L Pulse Rate 88 79 Respiratory 18 16 Rate Blood Pressure 142/93 119/81
[2019-03-19] MEDS ORDERED: hydrOXYzine PAMOATE 25 MG CAPSULE (FP) PO PRN (15:51)
[2019-03-19] MEDS ORDERED: MAGNESIUM CITRATE 300 ML BOTTLE PO PRN (15:51)
[2019-03-19] MEDS ORDERED: MELATONIN 5 MG TABLETS PO PRN (15:51)
[2019-03-19] MEDS ORDERED: BISMUTH SUBSALICYLATE 524 MG/30 ML UD PO PRN (15:51)
[2019-03-19] MEDS ORDERED: ACETAMINOPHEN 325 MG TABLET (FP) PO PRN ×2 (15:51)
[2019-03-19] MEDS ORDERED: MAG HYDROX/AL HYDROX/SIMETH 30 ML UNIT-DOSE CUP PO PRN (15:51)
[2019-03-19] MEDS ORDERED: METHOCARBAMOL 500 MG TABLET PO PRN (15:51)
[2019-03-19] MEDS ORDERED: MAGNESIUM HYDROX 2400MG/30ML ORAL SUSPENSION 30 ML CUP PO PRN (15:51)
[2019-03-19] MEDS ORDERED: MENTHOL/PHENOL 1 EACH UD MM PRN (15:51)
[2019-03-19] MEDS ORDERED: chlordiazePOXIDE HCL 25 MG CAPSULE PO PRN (15:51)
[2019-03-19] MEDS ORDERED: PATIENT'S OWN MEDICATION (NON-FORMULARY) (Ibuprofen [Ibuprofen] 800 MG) PO PRN (16:11)
[2019-03-19] MEDS ORDERED: ALBUTEROL SO4 8 GM HFA INHALER IH PRN (16:11)
[2019-03-19] MEDS: chlordiazePOXIDE HCL 25 MG CAPSULE PO SCH ×2 (17:44→22:14)
[2019-03-19] MEDS ORDERED: QUEtiapine FUMARATE 100 MG TABLET (FP) ONE (20:58)
[2019-03-19] MEDS: THIAMINE HCL 100 MG TABLET (FP) PO SCH (22:14)
[2019-03-19] MEDS: QUEtiapine FUMARATE 300 MG TABLET PO SCH (22:14)
[2019-03-20] MEDS: chlordiazePOXIDE HCL 25 MG CAPSULE PO SCH ×5 (05:57→22:22)
[2019-03-20] MEDS: ABACAVIR/DOLUTEGRAVIR/LAMIVUDI (TRIUMEQ) TABLET -NF PO SCH (07:34)
[2019-03-20] MEDS: amLODIPine BESYLATE 10 MG TABLET (FP) PO SCH (10:21)
[2019-03-20] MEDS: PRENATAL VITAMINS W/ FOLIC ACID TABLET (FP) PO SCH (10:21)
[2019-03-20 10:54] LABS: HEMOGLOBIN 8.7 GM/dL (10.7-15.3); MCH 26.4 pg (25.7-33.7); MCHC 32.2 g/dl (32.0-36.0); MEAN PLT VOLUME 8.5 fl (7.5-11.1); PLATELET COUNT 311 K/MM3 (134-434); RBC 3.29 M/mm3 (3.60-5.2); RDW 18.7 % (11.6-15.6); WHITE BLOOD COUNT 4.9 K/mm3 (4.0-10.0)
[2019-03-20 11:01] LABS: ALBUMIN 2.8 g/dl (3.4-5.0); BILIRUBIN,TOTAL 0.2 mg/dL (0.2-1); BLOOD UREA NITROGEN 18.7 mg/dL (7-18); POTASSIUM 4.1 mmol/L (3.5-5.1); TOT PROT 6.3 g/dl (6.4-8.2)
--- NOTE | 2019-03-20 11:27 | PN ---
Teaching Attending Note Name of Resident: Darshan Augustine ATTENDING PHYSICIAN STATEMENT I saw and evaluated the patient. I reviewed the resident's note and discussed the case with the resident. I agree with the resident's findings and plan as documented. SUBJECTIVE: OBJECTIVE: ASSESSMENT AND PLAN: Agree with plan for admission to detox for alcohol
--- NOTE | 2019-03-20 12:36 | PN ---
[facility] CIWA - CIWA Score Nausea/Vomitin-Mild Nausea/No Vomiting Muscle Tremors: 3 Anxiety: 4-Mod. 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 preferred pharmacy at [phone] for ARC hypertensive medications patient latest fill on 07/2017 patient insists that preferred pharmacy is the only one pharmacy patient states that she is tired "no sleep" for days Objective: 03/20/19 13:07 Vital Signs Temperature 96.1 F L 03/20/19 09:10 Pulse Rate 79 03/20/19 09:10 Respiratory Rate 16 03/20/19 09:10 Blood Pressure 119/81 03/20/19 09:10 O2 Sat by Pulse Oximetry (%) Laboratory Last Values WBC 4.9 K/mm3 (4.0-10.0) 03/20/19 07:45 RBC 3.29 M/mm3 (3.60-5.2) L 03/20/19 07:45 Hgb 8.7 GM/dL (10.7-15.3) L 03/20/19 07:45 Hct 27.0 % (32.4-45.2) L D 03/20/19 07:45 MCV 82.0 fl (80-96) 03/20/19 07:45 MCH 26.4 pg (25.7-33.7) 03/20/19 07:45 MCHC 32.2 g/dl (32.0-36.0) 03/20/19 07:45 RDW 18.7 % (11.6-15.6) H 03/20/19 07:45 Plt Count 311 K/MM3 (134-434) 03/20/19 07:45 MPV 8.5 fl (7.5-11.1) 03/20/19 07:45 Sodium 143 mmol/L (136-145) 03/20/19 07:45 Potassium 4.1 mmol/L (3.5-5.1) 03/20/19 07:45 Chloride 114 mmol/L (98-107) H 03/20/19 07:45 Carbon Dioxide 26 mmol/L (21-32) 03/20/19 07:45 Anion Gap 4 MMOL/L (8-16) L 03/20/19 07:45 BUN 18.7 mg/dL (7-18) H 03/20/19 07:45 Creatinine 1.0 mg/dL (0.55-1.3) 03/20/19 07:45 Est GFR (CKD-EPI)AfAm 73.45 03/20/19 07:45 Est GFR (CKD-EPI)NonAf 63.37 03/20/19 07:45 Random Glucose 85 mg/dL (74-106) 03/20/19 07:45 Calcium 8.0 mg/dL (8.5-10.1) L 03/20/19 07:45 Total Bilirubin 0.2 mg/dL (0.2-1) 03/20/19 07:45 AST 24 U/L (15-37) 03/20/19 07:45 ALT 23 U/L (13-61) 03/20/19 07:45 Alkaline Phosphatase 76 U/L (45-117) 03/20/19 07:45 Total Protein 6.3 g/dl (6.4-8.2) L 03/20/19 07:45 Albumin 2.8 g/dl (3.4-5.0) L 03/20/19 07:45 RPR Titer Nonreactive (NONREACTIVE) 03/20/19 07:45 lab noted Assessment: 03/20/19 13:07 alcohol withdrawal Plan: librium regiment adjusting librium dosage according to "too much" librium makes me sleepy
[2019-03-20] MEDS: IBUPROFEN 400 MG TABLET (FP) PO PRN (17:17)
[2019-03-20] MEDS: THIAMINE HCL 100 MG TABLET (FP) PO SCH (22:21)
[2019-03-20] MEDS: QUEtiapine FUMARATE 300 MG TABLET PO SCH (22:21)
[2019-03-21] MEDS ORDERED: chlordiazePOXIDE HCL 25 MG CAPSULE PO SCH (05:00)
[2019-03-21] MEDS: chlordiazePOXIDE HCL 10 MG CAPSULE PO SCH ×4 (07:30→22:17)
[2019-03-21] MEDS: ABACAVIR/DOLUTEGRAVIR/LAMIVUDI (TRIUMEQ) TABLET -NF PO SCH (07:33)
[2019-03-21] MEDS: PRENATAL VITAMINS W/ FOLIC ACID TABLET (FP) PO SCH (10:24)
[2019-03-21] MEDS: amLODIPine BESYLATE 10 MG TABLET (FP) PO SCH (10:24)
[2019-03-21] MEDS ORDERED: ABACAVIR/DOLUTEGRAVIR/LAMIVUDI (TRIUMEQ) TABLET -NF PO ONE ×2 (10:45→18:30)
[2019-03-21] MEDS: IBUPROFEN 400 MG TABLET (FP) PO PRN (11:59)
--- NOTE | 2019-03-21 13:05 | PN ---
S CIWA - CIWA Score Nausea/Vomitin-Mild Nausea/No Vomiting Muscle Tremors: 2 Anxiety: 2 Agitation: 2 Paroxysmal Sweats: 1-Minimal Palms Moist Orientation: 0-Oriented Tacttile Disturbances: 0-None Auditory Disturbances: 0-None Visual Disturbances: 0-None Headache: 0-None Present CIWA-Ar Total Score: 8 BHS Progress Note (SOAP) Subjective: 53 years old female admitted on 03/19/19 for alcohol withdrawal sx management treating with librium detox regiment requests to be seen by a psychiatrist that Ms Valadez is taking seroquel tremor and anxiety psychiatric referral Objective: 03/21/19 13:07 Vital Signs Temperature 97.0 F L 03/21/19 08:55 Pulse Rate 86 03/21/19 08:55 Respiratory Rate 18 03/21/19 08:55 Blood Pressure 112/70 03/21/19 08:55 O2 Sat by Pulse Oximetry (%) Laboratory Last Values WBC 4.9 K/mm3 (4.0-10.0) 03/20/19 07:45 RBC 3.29 M/mm3 (3.60-5.2) L 03/20/19 07:45 Hgb 8.7 GM/dL (10.7-15.3) L 03/20/19 07:45 Hct 27.0 % (32.4-45.2) L D 03/20/19 07:45 MCV 82.0 fl (80-96) 03/20/19 07:45 MCH 26.4 pg (25.7-33.7) 03/20/19 07:45 MCHC 32.2 g/dl (32.0-36.0) 03/20/19 07:45 RDW 18.7 % (11.6-15.6) H 03/20/19 07:45 Plt Count 311 K/MM3 (134-434) 03/20/19 07:45 MPV 8.5 fl (7.5-11.1) 03/20/19 07:45 Sodium 143 mmol/L (136-145) 03/20/19 07:45 Potassium 4.1 mmol/L (3.5-5.1) 03/20/19 07:45 Chloride 114 mmol/L (98-107) H 03/20/19 07:45 Carbon Dioxide 26 mmol/L (21-32) 03/20/19 07:45 Anion Gap 4 MMOL/L (8-16) L 03/20/19 07:45 BUN 18.7 mg/dL (7-18) H 03/20/19 07:45 Creatinine 1.0 mg/dL (0.55-1.3) 03/20/19 07:45 Est GFR (CKD-EPI)AfAm 73.45 03/20/19 07:45 Est GFR (CKD-EPI)NonAf 63.37 03/20/19 07:45 Random Glucose 85 mg/dL (74-106) 03/20/19 07:45 Calcium 8.0 mg/dL (8.5-10.1) L 03/20/19 07:45 Total Bilirubin 0.2 mg/dL (0.2-1) 03/20/19 07:45 AST 24 U/L (15-37) 03/20/19 07:45 ALT 23 U/L (13-61) 03/20/19 07:45 Alkaline Phosphatase 76 U/L (45-117) 03/20/19 07:45 Total Protein 6.3 g/dl (6.4-8.2) L 03/20/19 07:45 Albumin 2.8 g/dl (3.4-5.0) L 03/20/19 07:45 RPR Titer Nonreactive (NONREACTIVE) 03/20/19 07:45 lab noted anemia and hypocalcemia begin ferrous and oscal 03/21/19 13:09 Assessment: 03/21/19 13:09 alcohol withdrawal 03/21/19 13:10 anemia low calcium Plan: librium regiment ferrous sulfate oscal
[2019-03-21] MEDS: FERROUS SO4 325 MG TABLET (FP) PO SCH (14:46)
[2019-03-21] MEDS: CALCIUM 250MG/VIT-D 125 UNITS 1 COMBO TABLET PO SCH ×2 (14:46→22:17)
[2019-03-21] MEDS ORDERED: cloNIDine HCL 0.1 MG TABLET PO PRN (15:04)
--- NOTE | 2019-03-21 15:40 | CONSULT ---
[facility] Psychiatric Consult - Data Date of interview: 03/21/19 Admission source: [facility] Identifying data: Revisit to [facility] and admission to [address] [place] [address] for this 53 y/o AA female self-referred for detoxification treatment. JOSE issues : alcohol, nicotine, cocaine. Patient is single, a mother of two, domiciled, unemployed and supported on SSI benefits. Substance Abuse History: Discused with patient. Details in current [facility] report as follows : Smoking history: Current every day smoker. Have you smoked in the past 12 months: Yes. Aproximately how many cigarettes per day: 3. Cigars Per Day: 0. Hx Chewing Tobacco Use: No. Initiated information on smoking cessation : Yes. - Substances abused. Alcohol. Substance route: Oral. Frequency: Daily. Amount used: 40 OUNCES OF BEER, 1 PINT OF VODKA. Age of first use: 9. Date of last use: 03/17/19. Cocaine. Substance route: Inhalation. Frequency: 3-6 times per week. Amount used: $60. Age of first use: 14. Date of last use: 03/17/19 Medical History: Medical profile is remarkable for hypertension, anemia, bronchial asthma, past treatment for syphilis, history of umbilical herniorraphy , D&C (dilatation + curettage in 1983 and 1989), HIV infection (diagnosed in 2016) and right knee replacement (2018). Psychiatric History: Patient admits to an early onset (she was 9 years old) of psychiatric disturbances triggered by the of biological mother. Circumstances of her first psychiatric hospitalization ( ) : depression and suicide attempt via overdose with aspirin. Treated with psychotherapy (no psychotropics used). Ms Valadez received psychiatric treatment later during her incarceration at [facility] where she was diagnosed with Bipolar Disorder. She has been maintained on that medication for several years. However, the patient is known for chronic non-adherence to psychiatric OPD care + medications. She used to be followed at the [facility] in [place] (closed in December 2015). Patient reports that she has missed her intake appointment (03/13/19) at a mental health clinic in [facility] (name not recalled ). Distant history (age 9) of one suicide attempt via overdose with aspirin. Physical/Sexual Abuse/Trauma History: Not discussed in this session. Patient declines. Additional Comment: Urine drug screen results: JERRI-Cocaine. Noted. Mental Status Exam - Mental Status Exam Alert and Oriented to: Time, Place, Person Cognitive Function: Good Patient Appearance: Well Groomed (obese) Mood: Nervous, Withdrawn Affect: Mood Congruent, Constricted Patient Behavior: Sedated (falling asleep during this interview ; detoxification medications already initiated), Fatigued Speech Pattern: Delayed, Slurred Voice Loudness: Moderately Soft/Quiet Thought Process: Goal Oriented Thought Disorder: Not Present Hallucinations: Denies Suicidal Ideation: Denies Homicidal Ideation: Denies Insight/Judgement: Poor Sleep: Fair Appetite: Good Gait/Station: Other (not observed ; interview conducted at bedside ; patient stayed in bed) Psychiatric Findings - Problem List ([place] 1, 2,3) (1) Alcohol dependence with uncomplicated withdrawal Current Visit: Yes Status: Acute (2) Cocaine dependence, uncomplicated Current Visit: Yes Status: Chronic (3) Nicotine dependence Current Visit: Yes Status: Chronic Qualifiers: Nicotine product type: cigarettes Substance use status: in withdrawal Qualified Code(s): F17.213 - Nicotine dependence, cigarettes, with withdrawal (4) Substance induced mood disorder Current Visit: Yes Status: Chronic (5) History of bipolar disorder Current Visit: Yes Status: Chronic (6) Insomnia Current Visit: Yes Status: Chronic Qualifiers: Insomnia type: unspecified Qualified Code(s): G47.00 - Insomnia, unspecified (7) Non-compliance Current Visit: Yes Status: Chronic - Initial Treatment Plan Initial Treatment Plan: Psychoeducation. Sleep hygiene. Detoxification. AA meetings. Patient insists of getting back on quetiapine. Resumed : seroquel 100 mg po hs (reduced dose for prevention of oversedation and accidental falls). Side effects/benefits discussed with patient. Ms Valadez has expressed agreement with this plan of care. Observation.
--- NOTE | 2019-03-21 18:11 | PN ---
S Progress Note Note: per nursing, pt did not take a.m. dose of Triumeq . nurse reports pharmacist aware and is requesting a one-time order for medication to be dispensed .
[2019-03-21] MEDS: THIAMINE HCL 100 MG TABLET (FP) PO SCH (22:16)
[2019-03-22] MEDS ORDERED: chlordiazePOXIDE HCL 10 MG CAPSULE PO PRN
[2019-03-22] MEDS ORDERED: chlordiazePOXIDE HCL 10 MG CAPSULE PO SCH (05:00)
[2019-03-22] MEDS: FERROUS SO4 325 MG TABLET (FP) PO SCH (06:17)
[2019-03-22] MEDS: chlordiazePOXIDE 5 MG CAPSULE PO SCH ×4 (06:17→22:20)
[2019-03-22] MEDS: ABACAVIR/DOLUTEGRAVIR/LAMIVUDI (TRIUMEQ) TABLET -NF PO SCH (07:49)
--- NOTE | 2019-03-22 09:43 | PN ---
[facility] CIWA - CIWA Score Nausea/Vomitin-No Nausea/No Vomiting Muscle Tremors: 1-None Visible, but White Anxiety: 1-Mildly Anxious Agitation: 1-Slight > Activity Paroxysmal Sweats: 1-Minimal Palms Moist Orientation: 0-Oriented Tacttile Disturbances: 0-None Auditory Disturbances: 0-None Visual Disturbances: 0-None Headache: 0-None Present CIWA-Ar Total Score: 4 S Progress Note (SOAP) Subjective: 53 years old female admitted on 03/19/19 for alcohol withdrawal sx management treating with librium detox regimen patient requests to be discharged on 03/24/19 around 7 am with medicaid taxi arrangement discussed with the counselor that taxi seems necessary requests to be seen by a psychiatrist Objective: 03/22/19 09:51 Vital Signs Temperature 97.5 F L 03/22/19 09:05 Pulse Rate 97 H 03/22/19 09:05 Respiratory Rate 18 03/22/19 09:05 Blood Pressure 111/73 03/22/19 09:05 O2 Sat by Pulse Oximetry (%) Laboratory Last Values WBC 4.9 K/mm3 (4.0-10.0) 03/20/19 07:45 RBC 3.29 M/mm3 (3.60-5.2) L 03/20/19 07:45 Hgb 8.7 GM/dL (10.7-15.3) L 03/20/19 07:45 Hct 27.0 % (32.4-45.2) L D 03/20/19 07:45 MCV 82.0 fl (80-96) 03/20/19 07:45 MCH 26.4 pg (25.7-33.7) 03/20/19 07:45 MCHC 32.2 g/dl (32.0-36.0) 03/20/19 07:45 RDW 18.7 % (11.6-15.6) H 03/20/19 07:45 Plt Count 311 K/MM3 (134-434) 03/20/19 07:45 MPV 8.5 fl (7.5-11.1) 03/20/19 07:45 Sodium 143 mmol/L (136-145) 03/20/19 07:45 Potassium 4.1 mmol/L (3.5-5.1) 03/20/19 07:45 Chloride 114 mmol/L (98-107) H 03/20/19 07:45 Carbon Dioxide 26 mmol/L (21-32) 03/20/19 07:45 Anion Gap 4 MMOL/L (8-16) L 03/20/19 07:45 BUN 18.7 mg/dL (7-18) H 03/20/19 07:45 Creatinine 1.0 mg/dL (0.55-1.3) 03/20/19 07:45 Est GFR (CKD-EPI)AfAm 73.45 03/20/19 07:45 Est GFR (CKD-EPI)NonAf 63.37 03/20/19 07:45 Random Glucose 85 mg/dL (74-106) 03/20/19 07:45 Calcium 8.0 mg/dL (8.5-10.1) L 03/20/19 07:45 Total Bilirubin 0.2 mg/dL (0.2-1) 03/20/19 07:45 AST 24 U/L (15-37) 03/20/19 07:45 ALT 23 U/L (13-61) 03/20/19 07:45 Alkaline Phosphatase 76 U/L (45-117) 03/20/19 07:45 Total Protein 6.3 g/dl (6.4-8.2) L 03/20/19 07:45 Albumin 2.8 g/dl (3.4-5.0) L 03/20/19 07:45 RPR Titer Nonreactive (NONREACTIVE) 03/20/19 07:45 lab noted Assessment: 03/22/19 09:52 alcohol withdrawal Plan: librium regiment
[2019-03-22] MEDS: PRENATAL VITAMINS W/ FOLIC ACID TABLET (FP) PO SCH (09:53)
[2019-03-22] MEDS: IBUPROFEN 400 MG TABLET (FP) PO PRN (09:53)
[2019-03-22] MEDS: amLODIPine BESYLATE 10 MG TABLET (FP) PO SCH (09:53)
[2019-03-22] MEDS: CALCIUM 250MG/VIT-D 125 UNITS 1 COMBO TABLET PO SCH ×2 (09:56→22:20)
--- NOTE | 2019-03-22 16:13 | PN ---
Psychiatric Progress Note Vital Signs: Vital Signs Period Temp Pulse Resp BP Sys/Blake Pulse Ox Last 24 Hr 96.5 F-97.8 F 81-113 16-20 111-152/73-101 Date of Session: 03/12/19 Chief Complaint:: " I didn't get my seroquel last night." HPI: Patient admitted to for alcohol, cocaine, and nicotine dependence co- morbid bipolar disorder. Consultation ordered due to c/o of insomnia. ROS: Patient is calm + cooperative. Alert +oriented X3. Current Medications: Active Medications Generic Name Dose Route Start Last Admin Trade Name Freq PRN Reason Stop Dose Admin Abacavir/Dolutegravir/Lamivudine 1 each 03/22/19 08:00 03/22/19 07:49 Triumeq (Non-Formulary) PO 1 each DAILY@0800 CATIE Administration Acetaminophen 650 mg 03/19/19 15:51 Tylenol - PO Q6H PRN PAIN LEVEL 4 - 6 Acetaminophen 650 mg 03/19/19 15:51 Tylenol - PO Q6H PRN FEVER Al Hydroxide/Mg Hydroxide 30 ml 03/19/19 15:51 Mylanta Oral Suspension - PO Q6H PRN DYSPEPSIA Albuterol Sulfate 2 puff 03/19/19 16:11 Ventolin Hfa Inhaler - IH Q4H PRN ASTHMA Amlodipine Besylate 10 mg 03/20/19 10:00 03/22/19 09:53 Norvasc - PO 10 mg DAILY CATIE Administration Bismuth Subsalicylate 524 mg 03/19/19 15:51 Pepto-Bismol - PO Q1H PRN DIARRHEA Calcium/Vitamin D 1 tab 03/21/19 14:00 03/22/19 09:56 Oscal 250 Mg+D - PO 1 tab BID CATIE Administration Chlordiazepoxide HCl 10 mg 03/22/19 00:00 Librium - PO 03/23/19 00:00 Q4H PRN WITHDRAWAL(CONT SUBST) Chlordiazepoxide HCl 5 mg 03/24/19 05:00 Librium - PO 03/24/19 05:01 ONCE@0500 ONE Chlordiazepoxide HCl 5 mg 03/23/19 05:00 Librium - PO 03/23/19 17:01 Q12H CATIE Chlordiazepoxide HCl 5 mg 03/22/19 05:00 03/22/19 11:14 Librium - PO 03/22/19 23:01 Not Given [id number] CATIE Clonidine 0.1 mg 03/21/19 15:04 Catapres - PO Q6H PRN HYPERTENSION Eucalyptus/Menthol/Phenol/Sorbitol 1 each 03/19/19 15:51 Cepastat Lozenge - MM 03/25/19 15:51 Q4H PRN SORE THROAT Ferrous Sulfate 325 mg 03/21/19 14:00 03/22/19 06:17 Feosol - PO 325 mg DAILY@0700 CATIE Administration Hydroxyzine Pamoate 25 mg 03/19/19 15:51 Vistaril - PO 03/25/19 15:51 Q6H PRN For Anxiety Ibuprofen 400 mg 03/19/19 15:51 03/22/19 09:53 Motrin - PO 400 mg Q6H PRN Administration PAIN LEVEL 1 - 3 Ibuprofen 800 mg 03/19/19 18:26 03/21/19 11:59 Motrin - PO 800 mg Q8H PRN Administration PAIN LEVEL 7 - 10 Magnesium Citrate 300 ml 03/19/19 15:51 Citroma - PO Q48H PRN CONSTIPATION Magnesium Hydroxide 30 ml 03/19/19 15:51 Milk Of Magnesia - PO PRN PRN CONSTIPATION Melatonin 5 mg 03/19/19 15:51 Melatonin PO HS PRN INSOMNIA Methocarbamol 500 mg 03/19/19 15:51 Robaxin - PO 03/25/19 15:51 Q6H PRN MUSCLE SPASMS Multivit/Folic Acid/Iron 1 tab 03/20/19 10:00 03/22/19 09:53 Vitamins (Sjr) - PO 1 tab DAILY CATIE Administration Quetiapine Fumarate 100 mg 03/22/19 22:00 Seroquel - PO HS CATIE Thiamine HCl 100 mg 03/19/19 22:00 03/21/19 22:16 Vitamin B1 - PO 100 mg HS CATIE Administration Medication(s) Change(s): Yes. Will add seroquel 100mg HS Current Side Effect: No Lab tests ordered: No Lab tests reviewed: Yes Provider note:: Patient seen by Dr. Vasquez. Dr. Vasquez note read and appreciated. Patient reports poor sleep as she did not receive her seroquel dose last night. Chart reviewed. Will order Seroquel 100mg. Patient educated on the importance of proper sleep hygiene. Benefits and side effects discussed. Verbal consent given. Total face to face time:: 25 Mental Status Exam - Mental Status Exam Alert and Oriented to: Time, Place, Person Cognitive Function: Good Patient Appearance: Well Groomed Mood: Euthymic Affect: Appropriate Patient Behavior: Appropriate, Cooperative Speech Pattern: Appropriate Voice Loudness: Normal Thought Process: Goal Oriented Thought Disorder: Not Present Hallucinations: Denies Suicidal Ideation: Denies Homicidal Ideation: Denies Insight/Judgement: Poor Sleep: Poorly Appetite: Fair Muscle strength/Tone: Normal Gait/Station: Normal Psychiatric Treatment Plan - Problem List (1) Alcohol dependence with uncomplicated withdrawal Current Visit: Yes (2) Cocaine dependence, uncomplicated Current Visit: Yes (3) History of bipolar disorder Current Visit: Yes (4) Nicotine dependence Current Visit: Yes Qualifiers: Nicotine product type: cigarettes Substance use status: in withdrawal Qualified Code(s): F17.213 - Nicotine dependence, cigarettes, with withdrawal (5) Non-compliance Current Visit: Yes (6) Substance induced mood disorder Current Visit: Yes (7) Insomnia Current Visit: Yes Qualifiers: Insomnia type: unspecified Qualified Code(s): G47.00 - Insomnia, unspecified
[2019-03-22] MEDS: THIAMINE HCL 100 MG TABLET (FP) PO SCH (22:20)
[2019-03-22] MEDS: QUEtiapine FUMARATE 100 MG TABLET (FP) PO SCH (22:20)
[2019-03-23] MEDS ORDERED: chlordiazePOXIDE HCL 10 MG CAPSULE PO SCH (05:00)
[2019-03-23] MEDS: chlordiazePOXIDE 5 MG CAPSULE PO SCH ×2 (05:41→17:19)
[2019-03-23] MEDS: FERROUS SO4 325 MG TABLET (FP) PO SCH (07:47)
[2019-03-23] MEDS: ABACAVIR/DOLUTEGRAVIR/LAMIVUDI (TRIUMEQ) TABLET -NF PO SCH (07:50)
[2019-03-23] MEDS: IBUPROFEN 400 MG TABLET (FP) PO PRN (08:32)
[2019-03-23] MEDS: amLODIPine BESYLATE 10 MG TABLET (FP) PO SCH (09:53)
[2019-03-23] MEDS: PRENATAL VITAMINS W/ FOLIC ACID TABLET (FP) PO SCH (09:53)
[2019-03-23] MEDS: CALCIUM 250MG/VIT-D 125 UNITS 1 COMBO TABLET PO SCH ×2 (09:54→21:53)
--- NOTE | 2019-03-23 12:21 | PN ---
S CIWA - CIWA Score Nausea/Vomitin-No Nausea/No Vomiting Muscle Tremors: 1-None Visible, but [place] Anxiety: 2 Agitation: 0-Normal Activity Paroxysmal Sweats: No Perspiration Orientation: 0-Oriented Tacttile Disturbances: 0-None Auditory Disturbances: 0-None Visual Disturbances: 0-None Headache: 0-None Present CIWA-Ar Total Score: 3 [facility] Progress Note (SOAP) Subjective: Patient seen in community room watching TV with minimal complaints other some anxiety. Patient was seen by psychiatry twice with interventions. Objective: 03/23/19 12:20 Vitals: BP: 147/88 P: 110 R: 20 T:98.3 Laboratory 03/20/19 03/20/19 03/20/19 07:45 07:45 07:45 WBC 4.9 K/mm3 K/mm3 (4.0-10.0) RBC 3.29 M/mm3 L M/mm3 (3.60-5.2) Hgb 8.7 GM/dL L GM/dL (10.7-15.3) Hct 27.0 % L D % (32.4-45.2) MCV 82.0 fl fl (80-96) MCH 26.4 pg pg (25.7-33.7) MCHC 32.2 g/dl g/dl (32.0-36.0) RDW 18.7 % H % (11.6-15.6) Plt Count 311 K/MM3 K/MM3 (134-434) MPV 8.5 fl fl (7.5-11.1) Sodium 143 mmol/L mmol/L (136-145) Potassium 4.1 mmol/L mmol/L (3.5-5.1) Chloride 114 mmol/L H mmol/L (98-107) Carbon Dioxide 26 mmol/L mmol/L (21-32) Anion Gap 4 MMOL/L L MMOL/L (8-16) BUN 18.7 mg/dL H mg/dL (7-18) Creatinine 1.0 mg/dL mg/dL (0.55-1.3) Est GFR (CKD-EPI)AfAm 73.45 Est GFR (CKD-EPI)NonAf 63.37 Random Glucose 85 mg/dL mg/dL (74-106) Calcium 8.0 mg/dL L mg/dL (8.5-10.1) Total Bilirubin 0.2 mg/dL mg/dL (0.2-1) AST 24 U/L U/L (15-37) ALT 23 U/L U/L (13-61) Alkaline Phosphatase 76 U/L U/L (45-117) Total Protein 6.3 g/dl L g/dl (6.4-8.2) Albumin 2.8 g/dl L g/dl (3.4-5.0) RPR Titer Nonreactive (NONREACTIVE) Assessment: 03/23/19 12:21 03/23/19 12:22 1. Alcohol Dependence 2. Multiple medical problem 3. Co-morbid bipolar disorder 03/23/19 12:23 Plan: 1. Alcohol Dependence: Librium detox almost complete. Patient progressed well through detox. Stable for discharge tomorrow. 2. Co-morbid Bipolar Disorder: Continue Seroquel as per psychiatry for sleep. Needs discharge disposition for psychiatric follow up and also referral to outpatient treatment program upon discharge. Dr. [place]edo
[2019-03-23] MEDS: THIAMINE HCL 100 MG TABLET (FP) PO SCH (21:53)
[2019-03-23] MEDS: QUEtiapine FUMARATE 100 MG TABLET (FP) PO SCH (21:53)
[2019-03-24] MEDS: IBUPROFEN 400 MG TABLET (FP) PO PRN (03:44)
[2019-03-24] MEDS ORDERED: chlordiazePOXIDE HCL 10 MG CAPSULE PO ONE (05:00)
[2019-03-24] MEDS ORDERED: chlordiazePOXIDE 5 MG CAPSULE PO ONE (05:00)
[2019-03-24 06:57] VITALS: BP 140/85; PULSE 99; TEMP 96.4
[2019-03-24] MEDS: FERROUS SO4 325 MG TABLET (FP) PO SCH (07:10)
[2019-03-24] MEDS: ABACAVIR/DOLUTEGRAVIR/LAMIVUDI (TRIUMEQ) TABLET -NF PO SCH (08:06)
--- NOTE | 2019-03-24 15:09 | DS ---
[facility] Detox Discharge Summary Admission Date: 03/19/19 Discharge Date: 03/24/19 - History Present History: Alcohol Dependence, Cocaine Dependence Additional Comments: As per H&P: "Pt seeking detox for alcohol. Last drink Sat night. Has never withdrawn from EtOH. Used Suboxone Sat night and became nauseated with vomiting and sweating. Has not had any symptoms of withdrawal since then. No anxiety, tremors, nausea, vomiting, diarrhea, sweats, chills. Started drinking age 9. PMH: Asthma, HIV ( viral load: 290, CD4 count: unknown)". Pt is medically cleared and discharge today. Pt completed the detox protocol. Pt is encouraged to follow-up with an outpatient CD program and also to follow- up with her pmd. Pt verbalized understanding of the information given. Pt is alert and oriented x3 and in no acute respiratory distress. Pertinent Past History: h/o HTN, HIV+, cocaine, and alcohol use disorder. - Physical Exam Results Vital Signs: Vital Signs Temperature 96.4 F L 03/24/19 06:56 Pulse Rate 99 H 03/24/19 06:56 Respiratory Rate 18 03/24/19 06:56 Blood Pressure 140/85 03/24/19 06:56 O2 Sat by Pulse Oximetry (%) Laboratory Last Values WBC 4.9 K/mm3 (4.0-10.0) 03/20/19 07:45 RBC 3.29 M/mm3 (3.60-5.2) L 03/20/19 07:45 Hgb 8.7 GM/dL (10.7-15.3) L 03/20/19 07:45 Hct 27.0 % (32.4-45.2) L D 03/20/19 07:45 MCV 82.0 fl (80-96) 03/20/19 07:45 MCH 26.4 pg (25.7-33.7) 03/20/19 07:45 MCHC 32.2 g/dl (32.0-36.0) 03/20/19 07:45 RDW 18.7 % (11.6-15.6) H 03/20/19 07:45 Plt Count 311 K/MM3 (134-434) 03/20/19 07:45 MPV 8.5 fl (7.5-11.1) 03/20/19 07:45 Sodium 143 mmol/L (136-145) 03/20/19 07:45 Potassium 4.1 mmol/L (3.5-5.1) 03/20/19 07:45 Chloride 114 mmol/L (98-107) H 03/20/19 07:45 Carbon Dioxide 26 mmol/L (21-32) 03/20/19 07:45 Anion Gap 4 MMOL/L (8-16) L 03/20/19 07:45 BUN 18.7 mg/dL (7-18) H 03/20/19 07:45 Creatinine 1.0 mg/dL (0.55-1.3) 03/20/19 07:45 Est GFR (CKD-EPI)AfAm 73.45 03/20/19 07:45 Est GFR (CKD-EPI)NonAf 63.37 03/20/19 07:45 Random Glucose 85 mg/dL (74-106) 03/20/19 07:45 Calcium 8.0 mg/dL (8.5-10.1) L 03/20/19 07:45 Total Bilirubin 0.2 mg/dL (0.2-1) 03/20/19 07:45 AST 24 U/L (15-37) 03/20/19 07:45 ALT 23 U/L (13-61) 03/20/19 07:45 Alkaline Phosphatase 76 U/L (45-117) 03/20/19 07:45 Total Protein 6.3 g/dl (6.4-8.2) L 03/20/19 07:45 Albumin 2.8 g/dl (3.4-5.0) L 03/20/19 07:45 RPR Titer Nonreactive (NONREACTIVE) 03/20/19 07:45 Labs noted. Pertinent Admission Physical Exam Findings: withdrawal symptoms. - Treatment Hospital Course: Detox Protocol Followed, Detoxed Safely, Responded well, Discharged Condition Good - Medication Discharge Medications: Ambulatory Orders Quetiapine Fumarate [Seroquel -] 300 mg PO HS #30 tablet 03/22/17 Albuterol Sulfate Inhaler - [Ventolin HFA Inhaler -] 2 inh PO Q4H PRN #1 inhaler 08/07/17 Amlodipine Besylate [Norvasc -] 10 mg PO DAILY #30 tablet 08/07/17 Ibuprofen 800 mg PO Q8H PRN 03/19/19 Abacavir/Dolutegravir/Lamivudi [Triumeq (Non-Formulary)] 1 each PO DAILY #1 tablet 03/21/19 Quetiapine Fumarate [Seroquel -] 100 mg PO HS #30 tablet 03/23/19 - Diagnosis (1) Alcohol dependence with uncomplicated withdrawal Status: Acute (2) Hidradenitis suppurativa of left axilla Status: Acute (3) Arthritis Status: Chronic (4) Asthma Status: Chronic (5) Cannabis dependence Status: Chronic (6) Cocaine dependence, uncomplicated Status: Chronic (7) HIV (human immunodeficiency virus infection) Status: Chronic (8) Nicotine dependence Status: Chronic Qualifiers: Nicotine product type: cigarettes Substance use status: in withdrawal Qualified Code(s): F17.213 - Nicotine dependence, cigarettes, with withdrawal - AMA Did Patient Leave Against Medical Advice: No
== END 2019-03-24 09:31 | disposition home or self-care (01) | DRG 774 ==
LOC: YASAS 10:57 → Y3N 16:28
PROVIDERS: ADMIT Allergy & Immunology; ATTEND Allergy & Immunology
PROC: HZ2ZZZZ Detoxification Services for Substance Abuse Treatment (ICD-10-PCS; principal; 2019-03-19)
DX: F10.230 Alcohol dependence with withdrawal, uncomplicated (principal); F14.20 Cocaine dependence, uncomplicated; F12.20 Cannabis dependence, uncomplicated; F17.213 Nicotine dependence, cigarettes, with withdrawal; F31.9 Bipolar disorder, unspecified; F19.24 Other psychoactive substance dependence with psychoactive substance-induced mood disorder; I10 Essential (primary) hypertension; Z21 Asymptomatic human immunodeficiency virus [HIV] infection status; J45.909 Unspecified asthma, uncomplicated; L73.2 Hidradenitis suppurativa; M19.90 Unspecified osteoarthritis, unspecified site; G47.00 Insomnia, unspecified; D64.9 Anemia, unspecified; E83.51 Hypocalcemia; Z87.42 Personal history of other diseases of the female genital tract; Z91.19 Patient's noncompliance with other medical treatment and regimen; Z91.5 Personal history of self-harm
CPT/HCPCS: 36415; 80053; 85027; 86593; J0735